=== PATIENT | female | born 1945 | race Caucasian/White ===

== ENCOUNTER 2017-01-28 13:00 | Inpatient (IN) | payer OTHER ==
[~2017-01-28] VITALS: Ht 157.5 cm; Wt 102.7 kg
--- NOTE | 2017-01-28 13:58 | ERA ---
ER Documentation Chief Complaint Date/Time DATE: 01/28/17 TIME: 13:58 Chief Complaint PT referred by for createnine: 6.72 from 01/23/17 HPI The patient is a 71-year-old female, presenting to the ER because of abnormal lab creatinine 6.72 on January 23, 2017. She went to the clinic, who sent her to the ER for further evaluation. She denies any symptoms, denies fever, chills, headache, neck pain, dizziness, chest pain, dyspnea, abdominal pain, vomiting, dysuria. She does not smoke nor drink. She does not take her medications this morning Past medical history: Chronic kidney disease, hypertension Past surgical history: Tubal ligation ROS All systems reviewed and are negative except as per history of present illness. Medications Home Meds Reported Medications Losartan Potassium* (Losartan Potassium*) 100 Mg Tablet, 100 MG PO DAILY, TAB 01/28/17 Allergies Allergies: Coded Allergies: No Known Allergy (Unverified , 01/28/17) Physical Exam Vitals Vital Signs Date Time Temp Pulse Resp B/P Pulse Ox O2 Delivery O2 Flow Rate FiO2 01/28/17 13:02 97.8 92 18 212/100 99 Physical Exam Const: No acute distress. Head: Atraumatic. Eyes: Normal Conjunctiva. ENT: Normal External Ears, Nose and Mouth. Neck: Full range of motion. No meningismus. Resp: Clear to auscultation bilaterally. Cardio: Regular rate and rhythm. Abd: Soft, non distended, normal bowel sounds, non tender. Skin: No petechiae or rashes. Back: No midline or flank tenderness. Ext: No cyanosis, or edema. Neur: Awake and alert. No focal deficit Psych: Normal Mood and Affect. Result Diagram: 01/28/17 1419 01/28/17 1419 Results 24 hrs Laboratory Tests Test 01/28/17 14:19 White Blood Count 13.410^3/ul Red Blood Count 2.9910^6/ul Hemoglobin 8.8g/dl Hematocrit 27.4% Mean Corpuscular Volume 91.6fl Mean Corpuscular Hemoglobin 29.4pg Mean Corpuscular Hemoglobin Concent 32.1g/dl Red Cell Distribution Width 15.2% Platelet Count 09857^3/UL Mean Platelet Volume 10.1fl Neutrophils % 66.5% Lymphocytes % 19.3% Monocytes % 8.2% Eosinophils % 4.4% Basophils % 0.3% Nucleated Red Blood Cells % 0.0/100WBC Neutrophils # 8.910^3/ul Lymphocytes # 2.610^3/ul Monocytes # 1.110^3/ul Eosinophils # 0.610^3/ul Basophils # 0.010^3/ul Nucleated Red Blood Cells # 0.010^3/ul Prothrombin Time 14.0Sec Prothrombin Time Ratio 1.1 INR International Normalized Ratio 1.08 Activated Partial Thromboplast Time 35.4Sec Sodium Level 146mmol/L Potassium Level 4.8mmol/L Chloride Level 112mmol/L Carbon Dioxide Level 17mmol/L Anion Gap 22 Blood Urea Nitrogen 68mg/dl Creatinine 7.06mg/dl Glucose Level 79mg/dl Calcium Level 9.1mg/dl Phosphorus Level 5.5mg/dl Magnesium Level 1.7mg/dl Total Bilirubin 0.2mg/dl Direct Bilirubin 0.00mg/dl Indirect Bilirubin 0.2mg/dl Aspartate Amino Transf (AST/SGOT) 16IU/L Alanine Aminotransferase (ALT/SGPT) 22IU/L Alkaline Phosphatase 98IU/L Total Protein 8.1g/dl Albumin 4.3g/dl Globulin 3.80g/dl Albumin/Globulin Ratio 1.13 Current Medications Medications (Trade) Dose Ordered Sig/Luisa Route PRN Reason Start Time Stop Time Status Last Admin Dose Admin Labetalol HCl (Labetalol) 20 mg ONCE ONCE IV 01/28/17 14:30 01/28/17 14:31 Cancel Procedures/MDM MEDICAL MAKING DECISION: The patient is a 71-year-old female, presenting with acute on chronic kidney disease. She was sent to the ER by her physician for evaluation for hemodialysis Departure Diagnosis: Primary Impression: Acute kidney injury superimposed on chronic kidney disease Additional Impression: Anemia Condition: Stable Comments I discussed the findings with the patient. I discussed the patient with the on- call hospitalist Dr. Davalos at 3:20 PM who was made aware of the lab, the treatment, the patient condition. The patient is admitted to [facility] MD Jan 28, 2017 13:58
[2017-01-28] MEDS ORDERED: LOSA100T7 PO (14:12)
[2017-01-28] MEDS ORDERED: LABETALOL HCL 20MG INJ IV ONE (14:30)
[2017-01-28 14:33] LABS: BASOPHILS % 0.3 % (0.0-2.0); EOSINOPHILS # 0.6 10^3/ul (0.0-0.5); EOSINOPHILS % 4.4 % (0.0-7.0); HEMATOCRIT 27.4 % (37.0-47.0); HEMOGLOBIN 8.8 g/dl (12.0-16.0); LYMPHOCYTES # 2.6 10^3/ul (0.8-2.9); LYMPHOCYTES % 19.3 % (15.0-51.0); MEAN CORPUSCULAR HEMOGLOBIN 29.4 pg (29.0-33.0); MEAN CORPUSCULAR HGB CONC 32.1 g/dl (32.0-37.0); MEAN CORPUSCULAR VOLUME 91.6 fl (82.0-101.0); MEAN PLATELET VOLUME 10.1 fl (7.4-10.4); MONOCYTE # 1.1 10^3/ul (0.3-0.9); MONOCYTES % 8.2 % (0.0-11.0); NEUTROPHIL # 8.9 10^3/ul (1.6-7.5); NEUTROPHILS % 66.5 % (39.0-77.0); PLATELET COUNT 299 10^3/UL (140-415); RED BLOOD COUNT 2.99 10^6/ul (4.20-5.40); RED CELL DISTRIBUTION WIDTH 15.2 % (11.5-14.5); WHITE BLOOD COUNT 13.4 10^3/ul (4.8-10.8)
--- NOTE | 2017-01-28 14:40 | RADRPT ---
PROCEDURE: Chest Radiograph. CLINICAL INDICATION: Abdominal pain TECHNIQUE: Single frontal chest radiograph. COMPARISON: None available FINDINGS: The cardiomediastinal silhouette is within normal limits. No infiltrate or effusion is seen. Th e bones are intact. IMPRESSION: 1. Unremarkable chest radiograph. RPTAT: KK .Jamie Marquez MD, MD Date Time Electronically viewed and signed by .Jamie Marquez MD, on 01/28/2017 14:40 .B/
[2017-01-28 14:48] LABS: INR 1.08; PT RATIO 1.1
[2017-01-28 14:49] LABS: PARTIAL THROMBOPLASTIN TIME 35.4 Sec (25.0-35.0)
[2017-01-28 14:52] LABS: ALBUMIN 4.3 g/dl (3.3-4.9); ALBUMIN/GLOBULIN RATIO 1.13; BILIRUBIN,INDIRECT 0.2 mg/dl (0-1.1); BILIRUBIN,TOTAL 0.2 mg/dl (0.2-1.3); CALCIUM 9.1 mg/dl (8.4-10.2); CREATININE 7.06 mg/dl (0.44-1.00); MAGNESIUM 1.7 mg/dl (1.7-2.5); PHOSPHORUS 5.5 mg/dl (2.5-4.9); POTASSIUM 4.8 mmol/L (3.5-5.1); TOTAL PROTEIN 8.1 g/dl (6.1-8.1)
[2017-01-28 15:30] VITALS: TEMP 97.8
[2017-01-28 16:57] VITALS: BP 165/80; PULSE 75; RESP 18
[2017-01-28 17:13] VITALS: Ht 157.5 cm; Wt 102.7 kg
--- NOTE | 2017-01-28 18:13 | HP ---
Date/Time of Note Date/Time of Note DATE: 01/28/17 TIME: 18:09 Assessment/Plan VTE Prophylaxis VTE Prophylaxis Intervention: SCD's Lines/Catheters IV Catheter Type (from [facility]): Saline Lock Urinary Cath still in place: Yes Reason Cath still needed: urinary retention Assessment/Plan Chief Complaint/Hosp Course Patient is a 71-year-old female with past medical history significant for CKD and hypertension who presents to [facility] after being sent by her primary care provider for acute renal failure. Assessment Acute kidney injury on chronic kidney disease Hypernatremia, mild Hyperchloremia hypertensive emergency, SBP >180 with renal failure. resolved Anion gap metabolic acidosis Elevated BUN Elevated phosphorus Obesity Anemia, normocytic Plan -Nephrology consulted, currently solar sales associate is at bedside and stated will handle all orders. Avalos catheter ordered. Likely needs ultrasound of the kidneys as well as urine studies. -Hold patient's losartan in face of acute kidney injury -Electrolyte derangement likely secondary to acute renal failure, repeat labs tomorrow -Follow-up with nephrology recommendations -PRN BP medications. Will start oral amlodipine. Julian Shin DO. Problems: HPI/ROS Admit Date/Time Admit Date/Time Jan 28, 2017 at 15:23 Hx of Present Illness Patient is a 71-year-old female with a past medical history significant for CKD and hypertension who presents to [facility] after following up with her primary care provider who incidentally found an elevated creatinine. Patient only takes losartan 100 mg daily and has not taken the medication today which is likely the reasoning behind her elevated blood pressure. Patient states that in [place] her physicians always mentioned that her poor renal function, however they stated it was not severe enough for medication or dialysis at this time. Patient has no other acute complaints. Denies nausea vomiting, headache, chest pain, abdominal pain. No bowel issues however does have a history of mild urinary retention. PMH: Hypertension and CKD PSH: Tubal ligation many years ago Social: Denies smoking, drinking, recreational drugs Meds: Losartan 100 mg daily PMH/Family/Social Social History Smoking Status: Never smoker Exam/Review of Systems Vital Signs Vitals Vital Signs Date Time Temp Pulse Resp B/P Pulse Ox O2 Delivery O2 Flow Rate FiO2 01/28/17 16:57 98.1 75 18 165/80 100 Room Air Exam Exam Physical exam General: Patient is laying in bed and answers questions appropriately Mentation: Patient is alert and oriented 4, Head: Normocephalic atraumatic Eyes: EOMI, pupils reactive to light Neck: Supple, nontender, midline Respiratory: Clear to auscultation bilaterally Cardiovascular: regular rate, no obvious murmurs Gastrointestinal: non-tender to palpation, bowel sounds heard.obese Neurological: Moves all extremities spontaneously Skin: No new skin lesions Labs Result Diagram: 01/28/17 1419 01/28/17 1419 Medications Medications Current Medications Hydralazine HCl (Apresoline) 10 mg Q4H PRN IV SBP>160; Start 01/28/17 at 18:00 Acetaminophen/ Hydrocodone Bitart ([place] (5/325)) 2 tab Q6H PRN PO SEVERE PAIN LEVEL 7-10; Start 01/28/17 at 18:30; Status UNV Magnesium Hydroxide (Milk Of Mag) 30 ml DAILY PRN PO CONSTIPATION; Start at 18:30; Status UNV Zolpidem Tartrate (Ambien) 5 mg QHS PRN PO SLEEP; Start 01/28/17 at 18:30; Status UNV JULIAN SHIN Jan 28, 2017 18:13
--- NOTE | 2017-01-28 18:27 | CONS ---
Date/Time of Note Date/Time of Note DATE: 01/28/17 TIME: 18:24 Assessment/Plan Assessment/Plan Chief Complaint/Hosp Course CKD 5 HYPERTENSIVE NEPHROSCLEROSIS R/O RA STENOSIS ANEMIA POSS INTER ST NEPHRITES PLAN PER ORDER HD IF NO IMPROVEMENT THX Problems: Consultation Date/Type/Reason Admit Date/Time Jan 28, 2017 at 15:23 Initial Consult Date Type of Consultation: RENAL 24 HR Interval Summary Constitutional: No diaphoresis, No disoriented Exam/Review of Systems Vital Signs Vitals Vital Signs Date Time Temp Pulse Resp B/P Pulse Ox O2 Delivery O2 Flow Rate FiO2 01/28/17 16:57 98.1 75 18 165/80 100 Room Air Exam [id number] NO SOB NO TEE NO NSAID ABUSE Psych: no complaints Head: normocephalic Eyes: nl conjunctiva ENMT: nl external ears & nose Neck: supple Respiratory: clear to auscultation Cardiovascular: nl pulses, regular rate and rhythm Gastrointestinal: soft Musculoskeletal: nl extremities to inspection Extremities: normal pulses Neurological: WASTEWATER ANALYST LAB ANALYST II-XII intact, nl mental status, nl speech Results Result Diagram: 01/28/17 1419 01/28/17 1419 Results 24 hrs Laboratory Tests Test 01/28/17 14:19 White Blood Count 13.4 H Red Blood Count 2.99 L Hemoglobin 8.8 L Hematocrit 27.4 L Mean Corpuscular Volume 91.6 Mean Corpuscular Hemoglobin 29.4 Mean Corpuscular Hemoglobin Concent 32.1 Red Cell Distribution Width 15.2 H Platelet Count 299 Mean Platelet Volume 10.1 Neutrophils % 66.5 Lymphocytes % 19.3 Monocytes % 8.2 Eosinophils % 4.4 Basophils % 0.3 Nucleated Red Blood Cells % 0.0 Neutrophils # 8.9 H Lymphocytes # 2.6 Monocytes # 1.1 H Eosinophils # 0.6 H Basophils # 0.0 Nucleated Red Blood Cells # 0.0 Prothrombin Time 14.0 Prothrombin Time Ratio 1.1 INR International Normalized Ratio 1.08 Activated Partial Thromboplast Time 35.4 H Sodium Level 146 H Potassium Level 4.8 Chloride Level 112 H Carbon Dioxide Level 17 L Anion Gap 22 H Blood Urea Nitrogen 68 H Creatinine 7.06 H Glucose Level 79 Calcium Level 9.1 Phosphorus Level 5.5 H Magnesium Level 1.7 Total Bilirubin 0.2 Direct Bilirubin 0.00 Indirect Bilirubin 0.2 Aspartate Amino Transf (AST/SGOT) 16 Alanine Aminotransferase (ALT/SGPT) 22 Alkaline Phosphatase 98 Total Protein 8.1 Albumin 4.3 Globulin 3.80 H Albumin/Globulin Ratio 1.13 Medications Medications Current Medications Hydralazine HCl (Apresoline) 10 mg Q4H PRN IV SBP>160; Start 01/28/17 at 18:00 Acetaminophen/ Hydrocodone Bitart ([place] (5/325)) 2 tab Q6H PRN PO SEVERE PAIN LEVEL 7-10; Start 01/28/17 at 18:30 Magnesium Hydroxide (Milk Of Mag) 30 ml DAILY PRN PO CONSTIPATION; Start at 18:30 Zolpidem Tartrate (Ambien) 5 mg QHS PRN PO SLEEP; Start 01/28/17 at 18:30 Amlodipine Besylate (Norvasc) 10 mg ONCE ONCE PO ; Start 01/28/17 at 18:30; Stop 01/28/17 at 18:31 Amlodipine Besylate 10 mg 10 mg DAILY PO ; Start 01/29/17 at 09:00 Sodium Chloride (1/2 NS) 1,000 ml @ 40 mls/hr Q24H IV ; Start 01/28/17 at 18:30 FRANCISCO BAUER MD Jan 28, 2017 18:27
[2017-01-28] MEDS ORDERED: MAGNESIUM HYDROXIDE 30ML CUP PO PRN (18:30)
[2017-01-28] MEDS ORDERED: AMLODIPINE 10 MG TAB PO ONE (18:30)
[2017-01-28] MEDS ORDERED: ZOLPIDEM 5 MG TAB PO PRN (18:30)
[2017-01-28] MEDS ORDERED: NACL 0.9% 3 ML SYG IV SCH (18:30)
[2017-01-28] MEDS: SOD CHLORIDE 0.45% 1,000 ML IV SCH (18:47)
--- NOTE | 2017-01-28 19:01 | RADRPT ---
PROCEDURE: Renal US. CLINICAL INDICATION: Acute kidney injury. TECHNIQUE: Multiple sonographic images of the kidneys and urinary bladder were obtained. The imag es were reviewed on a PACS workstation. COMPARISON: No prior studies are available for comparison. FINDINGS: The right kidney measures 10.9 x 5.3 x 4.3 cm. The left kidney measures 11.3 x 5.6 x 5.1 cm. There is no solid renal mass. There is a benign cyst in the mid left kidney measuring 2.1 x 1.5 x 2 .1 cm There is no hydronephrosis. There is no renal calculus. Renal parenchymal thickness is normal bilaterally. Both kidneys are hyperechoic consistent with medical renal disease. The perirenal regions are normal with no fluid collection or mass. The urinary bladder is unremarkable. IMPRESSION: 1. No hydronephrosis. 2. Benign left renal cyst. 3. Bilateral hyperechoic kidneys consistent with medical renal disease. RPTAT: QQ .Matheus Landaverde MD, MD Date Time Electronically viewed and signed by .Matheus Landaverde MD, on 01/28/2017 19:01 .R/
[2017-01-28 20:50] VITALS: BP 186/87; RESP 18
[2017-01-28 22:27] LABS: HAAIG REFLEX REFLEX FILED
[2017-01-28 22:51] LABS: IRON 44 ug/dl (35-150)
[2017-01-28 23:00] VITALS: BP 166/76; PULSE 73
[2017-01-28 23:01] LABS: TOTAL IRON BINDING CAPACITY 253 ug/dl (241-421)
[2017-01-28] MEDS: hydrALAzine 20 MG INJ IV PRN (23:13)
[2017-01-28 23:41] LABS: HEPATITIS B CORE ANTIBODY NEGATIVE (NEGATIVE)
[2017-01-29 03:02] VITALS: BP 140/71; RESP 20
[2017-01-29 05:52] LABS: BASOPHILS % 0.3 % (0.0-2.0); EOSINOPHILS # 0.6 10^3/ul (0.0-0.5); HEMATOCRIT 25.8 % (37.0-47.0); HEMOGLOBIN 8.7 g/dl (12.0-16.0); LYMPHOCYTES % 14.3 % (15.0-51.0); MEAN CORPUSCULAR HEMOGLOBIN 30.5 pg (29.0-33.0); MEAN CORPUSCULAR HGB CONC 33.7 g/dl (32.0-37.0); MEAN CORPUSCULAR VOLUME 90.5 fl (82.0-101.0); MEAN PLATELET VOLUME 10.1 fl (7.4-10.4); MONOCYTE # 0.9 10^3/ul (0.3-0.9); MONOCYTES % 6.9 % (0.0-11.0); NEUTROPHIL # 10.1 10^3/ul (1.6-7.5); NEUTROPHILS % 73.8 % (39.0-77.0); PLATELET COUNT 294 10^3/UL (140-415); RED BLOOD COUNT 2.85 10^6/ul (4.20-5.40); RED CELL DISTRIBUTION WIDTH 14.7 % (11.5-14.5); WHITE BLOOD COUNT 13.7 10^3/ul (4.8-10.8)
[2017-01-29 06:03] LABS: ADD UMIC YES; UR ASCORBIC ACID NEGATIVE (NEGATIVE); UR BILIRUBIN (Dip) NEGATIVE (NEGATIVE); UR BLOOD (Dip) NEGATIVE (NEGATIVE); UR CLARITY CLEAR (CLEAR); UR COLOR STRAW (YELLOW); UR GLUCOSE (Dip) 1+ mg/dL (NEGATIVE); UR KETONES (Dip) NEGATIVE (NEGATIVE); UR LEUKOCYTE ESTERASE (Dip) NEGATIVE Leu/ul (NEGATIVE); UR NITRITE (Dip) NEGATIVE (NEGATIVE); UR RBC 0 /HPF (0-5); UR TOTAL PROTEIN (Dip) 2+ mg/dl (NEGATIVE); UR UROBILINOGEN (Dip) NEGATIVE (NEGATIVE)
[2017-01-29 06:24] LABS: MAGNESIUM 1.6 mg/dl (1.7-2.5); PHOSPHORUS 5.8 mg/dl (2.5-4.9)
[2017-01-29 06:25] LABS: ALBUMIN 3.8 g/dl (3.3-4.9); ALBUMIN/GLOBULIN RATIO 1.05; BILIRUBIN,INDIRECT 0.2 mg/dl (0-1.1); BILIRUBIN,TOTAL 0.2 mg/dl (0.2-1.3); CALCIUM 9.3 mg/dl (8.4-10.2); CREATININE 6.65 mg/dl (0.44-1.00); POTASSIUM 4.8 mmol/L (3.5-5.1); TOTAL PROTEIN 7.4 g/dl (6.1-8.1)
[2017-01-29 06:39] LABS: T3 UPTAKE 35.5 % (23.5-40.5)
[2017-01-29 07:09] LABS: PROTEIN/CREAT RATIO 6.29 RATIO
[2017-01-29 08:02] VITALS: BP 185/85; RESP 18
[2017-01-29] MEDS: AMLODIPINE 10 MG TAB PO SCH (08:11)
[2017-01-29] MEDS: hydrALAzine 20 MG INJ IV PRN (08:11)
--- NOTE | 2017-01-29 08:22 | CONS ---
DATE OF ADMISSION: 01/28/2017 DATE OF CONSULTATION: 01/28/2017 Nephrology consultation Thank you Dr. STEPHENSON for kindly asking me to see this patient IN RENAL _ consultation. HISTORY OF PRESENT ILLNESS: The patient is a 71-year-old female who has a history of CKD, history of hypertension. Most of the care for the patient's kidney disease is done in [place]. She had labs done in November in [place] and show patient's creatinine is running in the range of 7. The patient also had 4 years ago chronic kidney disease in [place], but has a poor followup. Patient had ultrasound done of kidney in [place], no report available. Was told she has kidney disease. The patient was seen in the clinic today, as per patient, and sent here for normal labs. The patient's WBC 13.4, hematocrit 27.5, platelet count of 299. Sodium 146, potassium 4.8, CO2 17, chloride 112. BUN and creatinine are BUN 68 and 7.06. The patient's chest x- ray shows unremarkable chest x-ray. The patient denies any nausea, vomiting, and diarrhea. Denies any history of NSAID abuse. There is a history of high blood pressure, takes medication from [place], does not know the name. Denies history of lupus, arthritis, no sore throat or ear discharge. No recent use of antibiotics. No history of gout. No history of lupus. No history of NSAID abuse. No history of . Photophobia, skin rash. PAST MEDICAL HISTORY: CKD, hypertension, anemia. ALLERGIES: SHE DENIES. FAMILY HISTORY: Diabetes, hypertension. MEDICATION: Patient at home is on Losartan. REVIEW OF SYSTEMS: HEENT: Unremarkable. RESPIRATORY: Unremarkable. CVS: No chest pain, GASTROINTESTINAL: No hematemesis. GENITOURINARY: No dysuria, hematuria, or flank pain. EXTREMITIES: Denies any swelling, numbness. WHEEL FILLER: No history of neuropathy or CVA PHYSICAL EXAMINATION: GENERAL APPEARANCE: An obese, overweight female, awake and alert. VITAL SIGNS: Pulse 71, blood pressure 165/80. HEENT: Head is atraumatic, normocephalic. Pupils are reactive to light. Pale pale conjunctivae noticed. NECK: Supple. LUNGS: Clear. CVS: S1, S2 normal. ABDOMEN: Soft, obese. Bowel sounds positive. No palpable mass. EXTREMITIES: No cyanosis or clubbing. Trace edema. WHEEL FILLER: Patient is awake, alert, moving both upper and lower extremities. No focal deficits. LABORATORY DATA: As mentioned. Sodium 146, potassium 4.8. BUN 68, creatinine 7.06. IMPRESSION: 1. Chronic kidney disease. 2. 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 3. Patient has POSS ARB AND WAI INDUCED MELISSA. 4. Mild dehydration. 5. Hypernatremia, metabolic acidosis. 6. Anemia of chronic kidney disease. 7. Leukocytosis. 8. R/O RA stenosis. 9. Obesity. 10. Rule out underlying focal segmental glomerulosclerosis. No evidence of acute glomerulonephritis. PLAN: At this point the plan is to obtain urine sodium and creatinine. Patient will have URIC ACID, phosphorus, uric acid checked. Gentle IV fluids. Ultrasound of the kidney. Urine albumin/creatinine ratio. RENAL diet. Further recommendations will be made. If the patient has no improvement in kidney function, the patient will benefit from hemodialysis. Thank you Dr STEPHENSON for kindly asking me to see this patient. Dictated By: Matt Cardenas MD /nnamdi/olamide /Document#: [id number] WARREN
[2017-01-29 09:06] VITALS: BP 151/71
[2017-01-29] MEDS ORDERED: TERAZOSIN 1 MG CAP PO ONE (09:30)
[2017-01-29] MEDS ORDERED: LABETALOL HCL 20MG INJ IV PRN (10:00)
[2017-01-29 11:26] VITALS: BP 135/70; PULSE 94
[2017-01-29] MEDS ORDERED: ONDANSETRON 4 MG INJ ONE (12:02)
[2017-01-29] MEDS: ONDANSETRON 4 MG INJ IV PRN (12:06)
[2017-01-29 14:24] VITALS: BP 122/58; RESP 18
--- NOTE | 2017-01-29 15:53 | PN ---
Date/Time of Note Date/Time of Note DATE: 01/29/17 TIME: 15:51 Assessment/Plan VTE Prophylaxis VTE Prophylaxis Intervention: SCD's Lines/Catheters IV Catheter Type (from Nrs): Saline Lock Urinary Cath still in place: Yes Reason Cath still needed: urinary retention Assessment/Plan Chief Complaint/Hosp Course Patient is a 71-year-old female with past medical history significant for CKD and hypertension who presents to [facility] after being sent by her primary care provider for acute renal failure. Assessment Acute kidney injury on chronic kidney disease Hypernatremia, mild Hyperchloremia hypertensive emergency, SBP >180 with renal failure. resolved Anion gap metabolic acidosis Elevated BUN Elevated phosphorus Obesity Anemia, normocytic Plan -nephrology consulted. FeNA, 12.5%. Cr only slightly improved today. pending recs. possible need for dialysis? -started amlodipine as we are holding losartan for MELISSA. adding terazosin today -urinating well with baumann -watch BP closely, PRN hydralazine (although gives her anxiety) and sublingual clonidine prn -prn zofran for n/v Julian Velasquez DO. Problems: Exam/Review of Systems Vital Signs Vitals Vital Signs Date Time Temp Pulse Resp B/P Pulse Ox O2 Delivery O2 Flow Rate FiO2 01/29/17 14:24 98.1 90 18 122/58 98 01/28/17 16:57 Room Air Intake and Output 01/28/17 01/28/17 01/29/17 15:00 23:00 07:00 Intake Total 180 ml 640 ml Output Total 1350 ml Balance 180 ml -710 ml Exam Physical exam General: Patient is laying in bed and answers questions appropriately Mentation: Patient is alert and oriented 4, Head: Normocephalic atraumatic Eyes: EOMI, pupils reactive to light Neck: Supple, nontender, midline Respiratory: Clear to auscultation bilaterally Cardiovascular: regular rate, no obvious murmurs Gastrointestinal: non-tender to palpation, bowel sounds heard.obese Neurological: Moves all extremities spontaneously Skin: No new skin lesions Results Result Diagram: 01/29/17 0530 01/29/17 0530 Results 24 hrs Laboratory Tests Test 01/28/17 21:35 01/28/17 22:17 01/28/17 22:18 01/29/17 05:28 Urine Color STRAW Urine Clarity CLEAR Urine pH 6.0 Urine Specific [place] 1.010 Urine Ketones NEGATIVE Urine Nitrite NEGATIVE Urine Bilirubin NEGATIVE Urine Urobilinogen NEGATIVE Urine Leukocyte Esterase NEGATIVE Urine Microscopic RBC 0 Urine Microscopic WBC 0 Urine Hemoglobin NEGATIVE Urine Random Creatinine 45.77 Urine Random Sodium 118 H Urine Protein/Creatinine Ratio 6.29 Urine Glucose 1+ H Urine Total Protein 2+ H Uric Acid 8.5 H Iron Level 44 Total Iron Binding Capacity 253 Percent Iron Saturation 17 L Parathyroid Hormone (Intact) Hepatitis B Surface Antigen NEGATIVE Hepatitis B Core Total Antibody NEGATIVE Hepatitis C Antibody NEGATIVE Phosphorus Level 5.8 H Magnesium Level 1.6 L Triglycerides Level 230 H Cholesterol Level 196 LDL Cholesterol, Calculated 122 HDL Cholesterol 28 L Cholesterol/HDL Ratio 7.0 Free Thyroxine Index 2.17 Thyroxine (T4) 6.1 Triiodothyronine (T3) Uptake 35.5 Test 01/29/17 05:30 White Blood Count 13.7 H Red Blood Count 2.85 L Hemoglobin 8.7 L Hematocrit 25.8 L Mean Corpuscular Volume 90.5 Mean Corpuscular Hemoglobin 30.5 Mean Corpuscular Hemoglobin Concent 33.7 Red Cell Distribution Width 14.7 H Platelet Count 294 Mean Platelet Volume 10.1 Neutrophils % 73.8 Lymphocytes % 14.3 L Monocytes % 6.9 Eosinophils % 4.0 Basophils % 0.3 Nucleated Red Blood Cells % 0.0 Neutrophils # 10.1 H Lymphocytes # 2.0 Monocytes # 0.9 Eosinophils # 0.6 H Basophils # 0.0 Nucleated Red Blood Cells # 0.0 Sodium Level 144 Potassium Level 4.8 Chloride Level 110 Carbon Dioxide Level 16 L Anion Gap 23 H Blood Urea Nitrogen 68 H Creatinine 6.65 H Glucose Level 94 Hemoglobin A1c 5.1 Calcium Level 9.3 Total Bilirubin 0.2 Direct Bilirubin 0.00 Indirect Bilirubin 0.2 Aspartate Amino Transf (AST/SGOT) 21 Alanine Aminotransferase (ALT/SGPT) 25 Alkaline Phosphatase 90 Total Protein 7.4 Albumin 3.8 Globulin 3.60 H Albumin/Globulin Ratio 1.05 Medications Medications Current Medications Hydralazine HCl (Apresoline) 10 mg Q4H PRN IV SBP>160 Last administered on t 08:11; Admin Dose 10 MG; Start 01/28/17 at 18:00 Acetaminophen/ Hydrocodone Bitart ([place] (5/325)) 2 tab Q6H PRN PO SEVERE PAIN LEVEL 7-10; Start 01/28/17 at 18:30 Magnesium Hydroxide (Milk Of Mag) 30 ml DAILY PRN PO CONSTIPATION; Start at 18:30 Zolpidem Tartrate (Ambien) 5 mg QHS PRN PO SLEEP; Start 01/28/17 at 18:30 Amlodipine Besylate 10 mg 10 mg DAILY PO Last administered on 01/29/17 08:11; Admin Dose 10 MG; Start 01/29/17 at 09:00 Sodium Chloride (1/2 NS) 1,000 ml @ 60 mls/hr [id number] IV Last administered on 01/28/17 18:47; Admin Dose 40 MLS/HR; Start 01/28/17 at 18:30 Terazosin HCl (Hytrin) 1 mg HS PO ; Start 01/29/17 at 21:00 Clonidine (Catapres) 0.1 mg Q6H PRN PO BP >160; Start 01/29/17 at 10:00 Ondansetron HCl 4 mg 4 mg Q6H PRN IV NAUSEA AND/OR VOMITING Last administered on 01/29/17 12:06; Admin Dose 4 MG; Start 01/29/17 at 12:00 Magnesium Sulfate (Magnesium Sulfate 2 Gm/50 ml) 50 ml @ 25 mls/hr ONCE ONCE IVPB ; Start 01/29/17 at 16:00; Stop 01/29/17 at 17:59 JULIAN VELASQUEZ Jan 29, 2017 15:53
[2017-01-29] MEDS ORDERED: MAGNESIUM SULFATE 2 GM/50 ML 50 ML IVPB ONE (16:00)
[2017-01-29] MEDS: SOD CHLORIDE 0.45% 1,000 ML IV SCH (17:57)
--- NOTE | 2017-01-29 18:03 | PN ---
Date/Time of Note Date/Time of Note DATE: 01/29/17 TIME: 18:01 Assessment/Plan VTE Prophylaxis VTE Prophylaxis Intervention: other Lines/Catheters IV Catheter Type (from Nrs): Saline Lock Urinary Cath still in place: Yes Reason Cath still needed: other (indicate) Assessment/Plan Chief Complaint/Hosp Course CKD 5 HYPERTENSIVE NEPHROSCLEROSIS R/O RA STENOSIS ANEMIA POSS INTER ST NEPHRITES HYPOMAGNESEMIA PLAN PER ORDER HD IF NO IMPROVEMENT IV FLUID Problems: Subjective 24 Hr Interval Summary Cardiovascular: no complaints Gastrointestinal: no complaints Genitourinary: no complaints Musculoskeletal: no complaints Neurologic: no complaints Endocrine: no complaints Lymphatic: no complaints Exam/Review of Systems Vital Signs Vitals Vital Signs Date Time Temp Pulse Resp B/P Pulse Ox O2 Delivery O2 Flow Rate FiO2 01/29/17 14:24 98.1 90 18 122/58 98 01/28/17 16:57 Room Air Intake and Output 01/28/17 01/28/17 01/29/17 15:00 23:00 07:00 Intake Total 180 ml 640 ml Output Total 1350 ml Balance 180 ml -710 ml Exam Neck: supple Respiratory: clear to auscultation Cardiovascular: regular rate and rhythm Gastrointestinal: soft Genitourinary - Female: nl adnexae Musculoskeletal: nl extremities to inspection Extremities: normal pulses Results Result Diagram: 01/29/17 0530 01/29/17 0530 Results 24 hrs Laboratory Tests Test 01/28/17 21:35 01/28/17 22:17 01/28/17 22:18 01/29/17 05:28 Urine Color STRAW Urine Clarity CLEAR Urine pH 6.0 Urine Specific [place] 1.010 Urine Ketones NEGATIVE Urine Nitrite NEGATIVE Urine Bilirubin NEGATIVE Urine Urobilinogen NEGATIVE Urine Leukocyte Esterase NEGATIVE Urine Microscopic RBC 0 Urine Microscopic WBC 0 Urine Hemoglobin NEGATIVE Urine Random Creatinine 45.77 Urine Random Sodium 118 H Urine Protein/Creatinine Ratio 6.29 Urine Glucose 1+ H Urine Total Protein 2+ H Uric Acid 8.5 H Iron Level 44 Total Iron Binding Capacity 253 Percent Iron Saturation 17 L Parathyroid Hormone (Intact) Hepatitis B Surface Antigen NEGATIVE Hepatitis B Core Total Antibody NEGATIVE Hepatitis C Antibody NEGATIVE Phosphorus Level 5.8 H Magnesium Level 1.6 L Triglycerides Level 230 H Cholesterol Level 196 LDL Cholesterol, Calculated 122 HDL Cholesterol 28 L Cholesterol/HDL Ratio 7.0 Free Thyroxine Index 2.17 Thyroxine (T4) 6.1 Triiodothyronine (T3) Uptake 35.5 Test 01/29/17 05:30 White Blood Count 13.7 H Red Blood Count 2.85 L Hemoglobin 8.7 L Hematocrit 25.8 L Mean Corpuscular Volume 90.5 Mean Corpuscular Hemoglobin 30.5 Mean Corpuscular Hemoglobin Concent 33.7 Red Cell Distribution Width 14.7 H Platelet Count 294 Mean Platelet Volume 10.1 Neutrophils % 73.8 Lymphocytes % 14.3 L Monocytes % 6.9 Eosinophils % 4.0 Basophils % 0.3 Nucleated Red Blood Cells % 0.0 Neutrophils # 10.1 H Lymphocytes # 2.0 Monocytes # 0.9 Eosinophils # 0.6 H Basophils # 0.0 Nucleated Red Blood Cells # 0.0 Sodium Level 144 Potassium Level 4.8 Chloride Level 110 Carbon Dioxide Level 16 L Anion Gap 23 H Blood Urea Nitrogen 68 H Creatinine 6.65 H Glucose Level 94 Hemoglobin A1c 5.1 Calcium Level 9.3 Total Bilirubin 0.2 Direct Bilirubin 0.00 Indirect Bilirubin 0.2 Aspartate Amino Transf (AST/SGOT) 21 Alanine Aminotransferase (ALT/SGPT) 25 Alkaline Phosphatase 90 Total Protein 7.4 Albumin 3.8 Globulin 3.60 H Albumin/Globulin Ratio 1.05 Medications Medications Current Medications Hydralazine HCl (Apresoline) 10 mg Q4H PRN IV SBP>160 Last administered on 08:11; Admin Dose 10 MG; Start 01/28/17 at 18:00 Acetaminophen/ Hydrocodone Bitart ([place] (5/325)) 2 tab Q6H PRN PO SEVERE PAIN LEVEL 7-10; Start 01/28/17 at 18:30 Magnesium Hydroxide (Milk Of Mag) 30 ml DAILY PRN PO CONSTIPATION; Start at 18:30 Zolpidem Tartrate (Ambien) 5 mg QHS PRN PO SLEEP; Start 01/28/17 at 18:30 Amlodipine Besylate 10 mg 10 mg DAILY PO Last administered on 01/29/17 08:11; Admin Dose 10 MG; Start 01/29/17 at 09:00 Sodium Chloride (1/2 NS) 1,000 ml @ 60 mls/hr [id number] IV Last administered on 01/29/17 17:57; Admin Dose 60 MLS/HR; Start 01/28/17 at 18:30 Terazosin HCl (Hytrin) 1 mg HS PO ; Start 01/29/17 at 21:00 Clonidine (Catapres) 0.1 mg Q6H PRN PO BP >160; Start 01/29/17 at 10:00 Ondansetron HCl (Zofran Inj) 4 mg Q6H PRN IV NAUSEA AND/OR VOMITING Last administered on 01/29/17t 12:06; Admin Dose 4 MG; Start 01/29/17 at 12:00 FRANCISCO BAUER MD Jan 29, 2017 18:03
[2017-01-29 20:12] VITALS: BP 132/60; RESP 19
[2017-01-29] MEDS: TERAZOSIN 1 MG CAP PO SCH (21:09)
[2017-01-30 02:06] VITALS: BP 105/51; RESP 17
[2017-01-30 06:26] LABS: ALBUMIN 3.6 g/dl (3.3-4.9); ALBUMIN/GLOBULIN RATIO 1.09; BILIRUBIN,INDIRECT 0.1 mg/dl (0-1.1); BILIRUBIN,TOTAL 0.1 mg/dl (0.2-1.3); CREATININE 7.39 mg/dl (0.44-1.00); MAGNESIUM 2.4 mg/dl (1.7-2.5); POTASSIUM 4.8 mmol/L (3.5-5.1); TOTAL PROTEIN 6.9 g/dl (6.1-8.1)
[2017-01-30 07:53] VITALS: BP 122/59; RESP 18
[2017-01-30] MEDS: SOD CHLORIDE 0.45% 1,000 ML IV SCH (09:19)
[2017-01-30] MEDS: AMLODIPINE 10 MG TAB PO SCH (09:19)
--- NOTE | 2017-01-30 14:19 | PN ---
Date/Time of Note Date/Time of Note DATE: 01/30/17 TIME: 14:11 Assessment/Plan VTE Prophylaxis VTE Prophylaxis Intervention: ambulation Lines/Catheters IV Catheter Type (from Nrsg): Saline Lock Urinary Cath still in place: Yes Reason Cath still needed: urinary retention Assessment/Plan Chief Complaint/Hosp Course Patient is a 71-year-old female with past medical history significant for CKD and hypertension who presents to [facility] after being sent by her primary care provider for acute renal failure. Assessment Acute kidney injury on chronic kidney disease Hypernatremia, mild Hyperchloremia hypertensive emergency, SBP >180 with renal failure. resolved Anion gap metabolic acidosis Elevated BUN Elevated phosphorus Obesity Anemia, normocytic Plan -nephrology consulted. FeNA, 12.5%. Cr still poor. nephrology ordered for permacath and HD -amlodipine as we are holding losartan for EMLISSA. terazosin as well -urinating well with baumann -watch BP closely, PRN hydralazine (although gives her anxiety) and sublingual clonidine prn -prn zofran for n/v Julian Velasquez DO. Problems: Subjective 24 Hr Interval Summary Free Text/Dictation apprehensive about hemodialysis Exam/Review of Systems Vital Signs Vitals Vital Signs Date Time Temp Pulse Resp B/P Pulse Ox O2 Delivery O2 Flow Rate FiO2 01/30/17 07:53 98.0 74 18 122/59 98 01/28/17 16:57 Room Air Intake and Output 01/29/17 01/29/17 01/30/17 15:00 23:00 07:00 Intake Total 1000 ml 810 ml Output Total 1500 ml 650 ml Balance -500 ml 160 ml Exam Physical exam General: Patient is laying in bed and answers questions appropriately Mentation: Patient is alert and oriented 4, Head: Normocephalic atraumatic Eyes: EOMI, pupils reactive to light Neck: Supple, nontender, midline Respiratory: Clear to auscultation bilaterally Cardiovascular: regular rate, no obvious murmurs Gastrointestinal: non-tender to palpation, bowel sounds heard.obese Neurological: Moves all extremities spontaneously Skin: No new skin lesions Results Result Diagram: 01/29/17 0530 01/30/17 0434 Results 24 hrs Laboratory Tests Test 01/30/17 04:34 Sodium Level 143 Potassium Level 4.8 Chloride Level 111 H Carbon Dioxide Level 14 L Anion Gap 23 H Blood Urea Nitrogen 69 H Creatinine 7.39 H Glucose Level 93 Calcium Level 9.0 Magnesium Level 2.4 Total Bilirubin 0.1 L Direct Bilirubin 0.00 Indirect Bilirubin 0.1 Aspartate Amino Transf (AST/SGOT) 12 L Alanine Aminotransferase (ALT/SGPT) 20 Alkaline Phosphatase 85 Total Protein 6.9 Albumin 3.6 Globulin 3.30 H Albumin/Globulin Ratio 1.09 Medications Medications Current Medications Hydralazine HCl (Apresoline) 10 mg Q4H PRN IV SBP>160 Last administered on 08:11; Admin Dose 10 MG; Start 01/28/17 at 18:00 Acetaminophen/ Hydrocodone Bitart ([place] (5/325)) 2 tab Q6H PRN PO SEVERE PAIN LEVEL 7-10; Start 01/28/17 at 18:30 Magnesium Hydroxide (Milk Of Mag) 30 ml DAILY PRN PO CONSTIPATION; Start at 18:30 Zolpidem Tartrate (Ambien) 5 mg QHS PRN PO SLEEP; Start 01/28/17 at 18:30 Amlodipine Besylate 10 mg 10 mg DAILY PO Last administered on 01/30/17 09:19; Admin Dose 10 MG; Start 01/29/17 at 09:00 Sodium Chloride (1/2 NS) 1,000 ml @ 60 mls/hr [id number] IV Last administered on 01/30/17 09:19; Admin Dose 60 MLS/HR; Start 01/28/17 at 18:30 Terazosin HCl (Hytrin) 1 mg HS PO Last administered on 01/29/17 21:09; Admin Dose 1 MG; Start 01/29/17 at 21:00 Clonidine (Catapres) 0.1 mg Q6H PRN PO BP >160; Start 01/29/17 at 10:00 Ondansetron HCl (Zofran Inj) 4 mg Q6H PRN IV NAUSEA AND/OR VOMITING Last administered on 01/29/17 12:06; Admin Dose 4 MG; Start 01/29/17 at 12:00 JULIAN VELASQUEZ Jan 30, 2017 14:19
[2017-01-30 15:06] VITALS: BP 134/61; RESP 20
--- NOTE | 2017-01-30 19:54 | CONS ---
Date/Time of Note Date/Time of Note DATE: 01/30/17 TIME: 19:53 Assessment/Plan Assessment/Plan Chief Complaint/Hosp Course CKD 5 HYPERTENSIVE NEPHROSCLEROSIS R/O RA STENOSIS ANEMIA POSS INTER ST NEPHRITES HYPOMAGNESEMIA PLAN PER ORDER HD NEEED PERMACATH Problems: Consultation Date/Type/Reason Admit Date/Time Jan 28, 2017 at 15:23 Type of Consultation: RENAL 24 HR Interval Summary Constitutional: other (WEAKNESS) Exam/Review of Systems Vital Signs Vitals Vital Signs Date Time Temp Pulse Resp B/P Pulse Ox O2 Delivery O2 Flow Rate FiO2 01/30/17 15:06 98.3 91 20 134/61 98 01/28/17 16:57 Room Air Intake and Output 01/29/17 01/29/17 01/30/17 15:00 23:00 07:00 Intake Total 1000 ml 810 ml Output Total 1500 ml 650 ml Balance -500 ml 160 ml Exam Respiratory: clear to auscultation Cardiovascular: regular rate and rhythm Gastrointestinal: soft Extremities: normal pulses Results Result Diagram: 01/29/17 0530 01/30/17 0434 Results 24 hrs Laboratory Tests Test 01/30/17 04:34 Sodium Level 143 Potassium Level 4.8 Chloride Level 111 H Carbon Dioxide Level 14 L Anion Gap 23 H Blood Urea Nitrogen 69 H Creatinine 7.39 H Glucose Level 93 Calcium Level 9.0 Magnesium Level 2.4 Total Bilirubin 0.1 L Direct Bilirubin 0.00 Indirect Bilirubin 0.1 Aspartate Amino Transf (AST/SGOT) 12 L Alanine Aminotransferase (ALT/SGPT) 20 Alkaline Phosphatase 85 Total Protein 6.9 Albumin 3.6 Globulin 3.30 H Albumin/Globulin Ratio 1.09 Medications Medications Current Medications Hydralazine HCl (Apresoline) 10 mg Q4H PRN IV SBP>160 Last administered on t 08:11; Admin Dose 10 MG; Start 01/28/17 at 18:00 Acetaminophen/ Hydrocodone Bitart ([place] (5/325)) 2 tab Q6H PRN PO SEVERE PAIN LEVEL 7-10; Start 01/28/17 at 18:30 Magnesium Hydroxide (Milk Of Mag) 30 ml DAILY PRN PO CONSTIPATION; Start at 18:30 Zolpidem Tartrate (Ambien) 5 mg QHS PRN PO SLEEP; Start 01/28/17 at 18:30 Amlodipine Besylate 10 mg 10 mg DAILY PO Last administered on 01/30/17 09:19; Admin Dose 10 MG; Start 01/29/17 at 09:00 Sodium Chloride (1/2 NS) 1,000 ml @ 60 mls/hr [id number] IV Last administered on 01/30/17 09:19; Admin Dose 60 MLS/HR; Start 01/28/17 at 18:30 Terazosin HCl (Hytrin) 1 mg HS PO Last administered on 01/29/17 21:09; Admin Dose 1 MG; Start 01/29/17 at 21:00 Clonidine (Catapres) 0.1 mg Q6H PRN PO BP >160; Start 01/29/17 at 10:00 Ondansetron HCl (Zofran Inj) 4 mg Q6H PRN IV NAUSEA AND/OR VOMITING Last administered on 01/29/17 12:06; Admin Dose 4 MG; Start 01/29/17 at 12:00 FRANCISCO BAUER MD Jan 30, 2017 19:54
[2017-01-30 20:30] VITALS: BP 135/63; RESP 20
[2017-01-30] MEDS: TERAZOSIN 1 MG CAP PO SCH (20:36)
[2017-01-31] VITALS (10 sets, daily range): BP systolic 117–178; BP diastolic 56–98; PULSE 70–79; RESP 16–19
[2017-01-31] MEDS: SOD CHLORIDE 0.45% 1,000 ML IV SCH ×2 (01:49→03:47)
[2017-01-31 06:00] LABS: HAAIG REFLEX REFLEX FILED
[2017-01-31 06:02] LABS: BASOPHILS % 0.2 % (0.0-2.0); EOSINOPHILS # 0.5 10^3/ul (0.0-0.5); HEMATOCRIT 23.6 % (37.0-47.0); HEMOGLOBIN 7.7 g/dl (12.0-16.0); LYMPHOCYTES # 1.6 10^3/ul (0.8-2.9); LYMPHOCYTES % 13.6 % (15.0-51.0); MEAN CORPUSCULAR HGB CONC 32.6 g/dl (32.0-37.0); MEAN CORPUSCULAR VOLUME 91.8 fl (82.0-101.0); MEAN PLATELET VOLUME 10.3 fl (7.4-10.4); MONOCYTE # 0.8 10^3/ul (0.3-0.9); MONOCYTES % 6.3 % (0.0-11.0); NEUTROPHILS % 75.4 % (39.0-77.0); PLATELET COUNT 269 10^3/UL (140-415); RED BLOOD COUNT 2.57 10^6/ul (4.20-5.40); RED CELL DISTRIBUTION WIDTH 14.7 % (11.5-14.5); WHITE BLOOD COUNT 11.9 10^3/ul (4.8-10.8)
[2017-01-31 06:52] LABS: CALCIUM 8.9 mg/dl (8.4-10.2); CREATININE 7.32 mg/dl (0.44-1.00); MAGNESIUM 2.2 mg/dl (1.7-2.5); PHOSPHORUS 6.6 mg/dl (2.5-4.9); POTASSIUM 4.6 mmol/L (3.5-5.1)
[2017-01-31 07:17] LABS: HEPATITIS B CORE ANTIBODY NEGATIVE (NEGATIVE)
[2017-01-31] MEDS: AMLODIPINE 10 MG TAB PO SCH (09:00)
[2017-01-31] MEDS ORDERED: HEPARIN 1000 UNITS/ML 10 ML INJ ONE (09:22)
[2017-01-31] MEDS ORDERED: LIDOCAINE 1% (MDV) 20 ML INJ ONE (09:22)
[2017-01-31] MEDS ORDERED: FENTAnyl 50 MCG/ML VIAL ONE (09:48)
[2017-01-31] MEDS ORDERED: CEFAZOLIN 1 GM/50 ML (PMX) 50 ML IVPB ONE (09:48)
[2017-01-31] MEDS ORDERED: DIPHENHYDRAMINE 50 MG INJ ONE (09:49)
[2017-01-31] MEDS ORDERED: MANNITOL 25% 50 ML IV PRN (13:00)
--- NOTE | 2017-01-31 14:02 | PN ---
Date/Time of Note Date/Time of Note DATE: 01/31/17 TIME: 14:01 Assessment/Plan VTE Prophylaxis VTE Prophylaxis Intervention: SCD's Lines/Catheters IV Catheter Type (from Nrsg): Peripheral IV Urinary Cath still in place: Yes Reason Cath still needed: urinary retention Assessment/Plan Chief Complaint/Hosp Course Patient is a 71-year-old female with past medical history significant for CKD and hypertension who presents to [facility] after being sent by her primary care provider for acute renal failure. Assessment Acute kidney injury on chronic kidney disease Hypernatremia, mild Hyperchloremia hypertensive emergency, SBP >180 with renal failure. resolved Anion gap metabolic acidosis Elevated BUN Elevated phosphorus Obesity Anemia, normocytic Plan -nephrology consulted. FeNA, 12.5%. Cr still poor. nephrology ordered for permacath and HD today -amlodipine as we are holding losartan for MELISSA. terazosin as well -urinating well with baumann -watch BP closely, PRN hydralazine (although gives her anxiety) and sublingual clonidine prn -prn zofran for n/v Julian Velasquez DO. Problems: Subjective 24 Hr Interval Summary Free Text/Dictation no new complaints Exam/Review of Systems Vital Signs Vitals Vital Signs Date Time Temp Pulse Resp B/P Pulse Ox O2 Delivery O2 Flow Rate FiO2 01/31/17 12:25 98.0 80 16 140/60 97 01/28/17 16:57 Room Air Intake and Output 01/30/17 01/30/17 01/31/17 15:00 23:00 07:00 Intake Total 340 ml 1620 ml 680 ml Output Total 900 ml 900 ml Balance 340 ml 720 ml -220 ml Exam Physical exam General: Patient is laying in bed and answers questions appropriately Mentation: Patient is alert and oriented 4, Head: Normocephalic atraumatic Eyes: EOMI, pupils reactive to light Neck: Supple, nontender, midline Respiratory: Clear to auscultation bilaterally Cardiovascular: regular rate, no obvious murmurs Gastrointestinal: non-tender to palpation, bowel sounds heard.obese Neurological: Moves all extremities spontaneously Skin: No new skin lesions Results Result Diagram: 01/31/17 0425 01/31/175 Results 24 hrs Laboratory Tests Test 01/31/17 04:25 White Blood Count 11.9 H Red Blood Count 2.57 L Hemoglobin 7.7 L Hematocrit 23.6 L Mean Corpuscular Volume 91.8 Mean Corpuscular Hemoglobin 30.0 Mean Corpuscular Hemoglobin Concent 32.6 Red Cell Distribution Width 14.7 H Platelet Count 269 Mean Platelet Volume 10.3 Neutrophils % 75.4 Lymphocytes % 13.6 L Monocytes % 6.3 Eosinophils % 4.0 Basophils % 0.2 Nucleated Red Blood Cells % 0.0 Neutrophils # 9.0 H Lymphocytes # 1.6 Monocytes # 0.8 Eosinophils # 0.5 Basophils # 0.0 Nucleated Red Blood Cells # 0.0 Sodium Level 138 Potassium Level 4.6 Chloride Level 109 Carbon Dioxide Level 16 L Anion Gap 18 H Blood Urea Nitrogen 69 H Creatinine 7.32 H Glucose Level 85 Calcium Level 8.9 Phosphorus Level 6.6 H Magnesium Level 2.2 Hepatitis B Surface Antigen NEGATIVE Hepatitis B Core Total Antibody NEGATIVE Hepatitis C Antibody NEGATIVE Medications Medications Current Medications Hydralazine HCl (Apresoline) 10 mg Q4H PRN IV SBP>160 Last administered on 08:11; Admin Dose 10 MG; Start 01/28/17 at 18:00 Acetaminophen/ Hydrocodone Bitart ([place] (5/325)) 2 tab Q6H PRN PO SEVERE PAIN LEVEL 7-10; Start 01/28/17 at 18:30 Magnesium Hydroxide (Milk Of Mag) 30 ml DAILY PRN PO CONSTIPATION; Start at 18:30 Zolpidem Tartrate (Ambien) 5 mg QHS PRN PO SLEEP; Start 01/28/17 at 18:30 Amlodipine Besylate 10 mg 10 mg DAILY PO Last administered on 01/30/17 09:19; Admin Dose 10 MG; Start 01/29/17 at 09:00 Sodium Chloride (1/2 NS) 1,000 ml @ 60 mls/hr [id number] IV Last administered on 01/31/17 03:47; Admin Dose 60 MLS/HR; Start 01/28/17 at 18:30 Terazosin HCl (Hytrin) 1 mg HS PO Last administered on 01/30/17 20:36; Admin Dose 1 MG; Start 01/29/17 at 21:00 Clonidine (Catapres) 0.1 mg Q6H PRN PO BP >160; Start 01/29/17 at 10:00 Ondansetron HCl (Zofran Inj) 4 mg Q6H PRN IV NAUSEA AND/OR VOMITING Last administered on 01/29/17t 12:06; Admin Dose 4 MG; Start 01/29/17 at 12:00 JULIAN VELASQUEZ Jan 31, 2017 14:02
--- NOTE | 2017-01-31 14:32 | RADRPT ---
PROCEDURE: PLACEMENT OF RIGHT INTERNAL JUGULAR VENOUS TUNNELED DIALYSIS CATHETER. CLINICAL INDICATION: Renal failure. TECHNIQUE: Prior to the procedure, informed consent was obtained. Risks including bleeding, infection, and pneu mothorax were explained to the patient and/or the patient's family. The patient and/or the patient's family understood and was willing to proceed. A procedural pause was performed. The patient's name, date of , and procedure to be performed were verified. The central line was inserted with all elements of maximal sterile barrier technique. All of the following were used: head covering, facial mask, sterile gown, sterile gloves, a large sterile sheet, hand hygiene, and 2% chlorhexidine for cutaneous antisepsis. The right neck and anterior/superior chest wall was prepped and draped in usu al sterile fashion. Limited sonography of the right neck was then performed. Noted is a patent right internal jugular ve in. Ultrasound images were recorded and stored in the patient's medical record. Following the local injection of Xylocaine, the right internal jugular vein was punctured under sono graphic guidance with a 20-gauge needle through which a 0.018 inch floppy tip guidewire was advanced into the superior vena cava. The tract was dilated to 5 Mong[place] and the wire was then replaced with a 0.035 in Amplatz guidewire. A tunnel was then created from the anterior lateral aspect of the sup erior right chest wall to the puncture site in the neck and the catheter was pulled through the trac t. Serial dilatation was then performed and a 16 [place] peel away sheath was introduced. The 14.5 [place] 23cm tip to cuff Angiodynamics BioFlo DuraMax dialysis catheter was advanced through the 16 F rench peel-away sheath. The tip of the catheter was confirmed in position within the right atrium. T he peel-away sheath was removed. The 2 ports were each flushed with 2.3 ml of 1:1000 heparin. The c atheter was secured to the skin with 2-0 silk. The wound in the neck was closed with 4-0 Vicryl suture using subcuticular running technique. The site was dressed. The patient tolerated the proce dure well. COMPARISON: None. FINDINGS: Final radiographic images demonstrate the tip of the catheter in the upper right atrium. A total of 0.1 minutes of fluoroscopy time was used. The ultrasound images demonstrate the needle entering th e jugular vein. Ultrasound images were recorded and stored in the patient's medical record. 5 image s of the chest were obtained with image intensifier. IMPRESSION: 1. Percutaneous insertion of right internal jugular dialysis tunneled dialysis catheter under fluoro scopic and sonographic guidance. RPTAT: QQ .Matheus Landaverde MD, MD Date Time Electronically viewed and signed by .Matheus Landaverde MD, MD on 01/31/2017 14:31 .R/
--- NOTE | 2017-01-31 14:32 | RADRPT ---
PROCEDURE: Ultrasound guidance for placement of needle in right internal jugular vein. CLINICAL INDICATION: Venous access. TECHNIQUE: Prior to the procedure, informed consent was obtained. Risks including bleeding, infection, and pneu mothorax were explained to the patient. The patient understood and was willing to proceed. A procedu ral pause was performed. The patient's name, date of , and procedure to be performed were verif ied. The central line was inserted with all elements of maximal sterile barrier technique. All of th e following were used: head covering, facial mask, sterile gown, sterile gloves, a large sterile she et, hand hygiene, and 2% chlorhexidine for cutaneous antisepsis. The right neck and anterior/super ior chest wall was prepped and draped in usual sterile fashion. Limited sonography of the right neck was then performed. Noted is a patent right internal jugular ve in. Ultrasound images were recorded and stored in the patient's medical record. Following the local injection of Xylocaine, the right internal jugular vein was punctured under sono graphic guidance with a 20-gauge needle through which a 0.018 inch floppy tip guidewire was advanced into the superior vena cava. The patient tolerated the procedure well. The remainder of the proce dure was performed and dictated under separate cover. COMPARISON: None. FINDINGS: The ultrasound images demonstrate a patent right internal jugular vein. The subsequent images demon strate the needle entering the right internal jugular vein. IMPRESSION: 1. Ultrasound guidance for a needle placement in right internal jugular vein. RPTAT: QQ .Matheus Landaverde MD, Date Time Electronically viewed and signed by .Matheus Landaverde MD, on 01/31/2017 14:31 .R/
[2017-01-31] MEDS: HYDROCODONE/APAP (5/325) TAB PO PRN (19:47)
--- NOTE | 2017-01-31 19:54 | CONS ---
Date/Time of Note Date/Time of Note DATE: 01/31/17 TIME: 19:53 Assessment/Plan Assessment/Plan Chief Complaint/Hosp Course CKD 5 HYPERTENSIVE NEPHROSCLEROSIS METABOLIC ACIDOSIS ANEMIA POSS INTER ST NEPHRITES HYPOMAGNESEMIA BETTER PLAN PER ORDER HD PERMACATH OUT PT HD Problems: Consultation Date/Type/Reason Admit Date/Time Jan 28, 2017 at 15:23 Type of Consultation: RENAL 24 HR Interval Summary Constitutional: improved Exam/Review of Systems Vital Signs Vitals Vital Signs Date Time Temp Pulse Resp B/P Pulse Ox O2 Delivery O2 Flow Rate FiO2 01/31/17 16:00 70 18 01/31/17 14:18 98.8 143/68 96 01/28/17 16:57 Room Air Intake and Output 01/30/17 01/30/17 01/31/17 15:00 23:00 07:00 Intake Total 340 ml 1620 ml 680 ml Output Total 900 ml 900 ml Balance 340 ml 720 ml -220 ml Exam Respiratory: clear to auscultation Cardiovascular: regular rate and rhythm Gastrointestinal: bowel sounds (+), soft Extremities: normal pulses Results Result Diagram: 01/31/17 0425 01/31/17 0425 Results 24 hrs Laboratory Tests Test 01/31/17 04:25 White Blood Count 11.9 H Red Blood Count 2.57 L Hemoglobin 7.7 L Hematocrit 23.6 L Mean Corpuscular Volume 91.8 Mean Corpuscular Hemoglobin 30.0 Mean Corpuscular Hemoglobin Concent 32.6 Red Cell Distribution Width 14.7 H Platelet Count 269 Mean Platelet Volume 10.3 Neutrophils % 75.4 Lymphocytes % 13.6 L Monocytes % 6.3 Eosinophils % 4.0 Basophils % 0.2 Nucleated Red Blood Cells % 0.0 Neutrophils # 9.0 H Lymphocytes # 1.6 Monocytes # 0.8 Eosinophils # 0.5 Basophils # 0.0 Nucleated Red Blood Cells # 0.0 Sodium Level 138 Potassium Level 4.6 Chloride Level 109 Carbon Dioxide Level 16 L Anion Gap 18 H Blood Urea Nitrogen 69 H Creatinine 7.32 H Glucose Level 85 Calcium Level 8.9 Phosphorus Level 6.6 H Magnesium Level 2.2 Hepatitis B Surface Antigen NEGATIVE Hepatitis B Core Total Antibody NEGATIVE Hepatitis C Antibody NEGATIVE Medications Medications Current Medications Hydralazine HCl (Apresoline) 10 mg Q4H PRN IV SBP>160 Last administered on 08:11; Admin Dose 10 MG; Start 01/28/17 at 18:00 Acetaminophen/ Hydrocodone Bitart ([place] (5/325)) 2 tab Q6H PRN PO SEVERE PAIN LEVEL 7-10 Last administered on 01/31/17 19:47; Admin Dose 2 TAB; Start at 18:30 Magnesium Hydroxide (Milk Of Mag) 30 ml DAILY PRN PO CONSTIPATION; Start at 18:30 Zolpidem Tartrate (Ambien) 5 mg QHS PRN PO SLEEP; Start 01/28/17 at 18:30 Amlodipine Besylate 10 mg 10 mg DAILY PO Last administered on 01/30/17 09:19; Admin Dose 10 MG; Start 01/29/17 at 09:00 Sodium Chloride (1/2 NS) 1,000 ml @ 60 mls/hr [id number] IV Last administered on 01/31/17 03:47; Admin Dose 60 MLS/HR; Start 01/28/17 at 18:30 Terazosin HCl (Hytrin) 1 mg HS PO Last administered on 01/30/17 20:36; Admin Dose 1 MG; Start 01/29/17 at 21:00 Clonidine (Catapres) 0.1 mg Q6H PRN PO BP >160; Start 01/29/17 at 10:00 Ondansetron HCl (Zofran Inj) 4 mg Q6H PRN IV NAUSEA AND/OR VOMITING Last administered on 01/29/17 12:06; Admin Dose 4 MG; Start 01/29/17 at 12:00 FRANCISCO BAUER MD Jan 31, 2017 19:54
[2017-01-31] MEDS: TERAZOSIN 1 MG CAP PO SCH (21:44)
[2017-02-01] VITALS (11 sets, daily range): BP systolic 140–167; BP diastolic 72–87; PULSE 7–82; RESP 18
[2017-02-01] MEDS: HYDROCODONE/APAP (5/325) TAB PO PRN ×2 (02:16→22:49)
[2017-02-01] MEDS: SOD CHLORIDE 0.45% 1,000 ML IV SCH ×2 (02:17→22:49)
[2017-02-01 06:30] LABS: BASOPHILS % 0.1 % (0.0-2.0); EOSINOPHILS # 0.2 10^3/ul (0.0-0.5); EOSINOPHILS % 1.4 % (0.0-7.0); HEMATOCRIT 24.9 % (37.0-47.0); HEMOGLOBIN 8.1 g/dl (12.0-16.0); MEAN CORPUSCULAR HEMOGLOBIN 29.2 pg (29.0-33.0); MEAN CORPUSCULAR HGB CONC 32.5 g/dl (32.0-37.0); MEAN CORPUSCULAR VOLUME 89.9 fl (82.0-101.0); MEAN PLATELET VOLUME 9.9 fl (7.4-10.4); MONOCYTES % 7.2 % (0.0-11.0); NEUTROPHIL # 12.1 10^3/ul (1.6-7.5); NEUTROPHILS % 83.7 % (39.0-77.0); PLATELET COUNT 251 10^3/UL (140-415); RED BLOOD COUNT 2.77 10^6/ul (4.20-5.40); RED CELL DISTRIBUTION WIDTH 14.4 % (11.5-14.5); WHITE BLOOD COUNT 14.4 10^3/ul (4.8-10.8)
[2017-02-01 06:55] LABS: CALCIUM 8.8 mg/dl (8.4-10.2); CREATININE 5.41 mg/dl (0.44-1.00); MAGNESIUM 1.9 mg/dl (1.7-2.5); PHOSPHORUS 5.7 mg/dl (2.5-4.9); POTASSIUM 4.2 mmol/L (3.5-5.1)
[2017-02-01] MEDS: AMLODIPINE 10 MG TAB PO SCH (08:11)
[2017-02-01] MEDS: ONDANSETRON 4 MG INJ IV PRN (08:11)
--- NOTE | 2017-02-01 11:57 | CONS ---
Date/Time of Note Date/Time of Note DATE: 02/01/17 TIME: 11:53 Assessment/Plan Assessment/Plan Chief Complaint/Hosp Course 1. CKD 5 2. HYPERTENSIon, uncontrollable 3. NEPHROSCLEROSIS 4. ANEMIA chronic disease 5. Obesity Problems: Additional Assessment/Plan 1. Continue HD 2. Better Hypertension control 3. Control of hyperphosphatemia Consultation Date/Type/Reason Admit Date/Time Jan 28, 2017 at 15:23 Initial Consult Date 01/28/2017 Type of Consultation: RENAL Reason for Consultation Dr Cardenas 24 HR Interval Summary Constitutional: improved Exam/Review of Systems Vital Signs Vitals Vital Signs Date Time Temp Pulse Resp B/P Pulse Ox O2 Delivery O2 Flow Rate FiO2 02/01/17 07:35 98.3 84 18 167/81 95 01/28/17 16:57 Room Air Intake and Output 01/31/17 01/31/17 02/01/17 15:00 23:00 07:00 Intake Total 1000 ml 1120 ml Output Total 1900 ml 750 ml Balance -900 ml 370 ml Exam Constitutional: alert, oriented Neck: other (Antonio cath), supple Cardiovascular: other (lower extremities edema), regular rate and rhythm Gastrointestinal: soft Genitourinary - Female: other (baumann) Neurological: FILLING HAULER II-XII intact Results Result Diagram: 02/01/17 0604 02/01/17 0604 Results 24 hrs Laboratory Tests Test 02/01/17 06:04 White Blood Count 14.4 #H Red Blood Count 2.77 L Hemoglobin 8.1 L Hematocrit 24.9 L Mean Corpuscular Volume 89.9 Mean Corpuscular Hemoglobin 29.2 Mean Corpuscular Hemoglobin Concent 32.5 Red Cell Distribution Width 14.4 Platelet Count 251 Mean Platelet Volume 9.9 Neutrophils % 83.7 H Lymphocytes % 7.0 L Monocytes % 7.2 Eosinophils % 1.4 Basophils % 0.1 Nucleated Red Blood Cells % 0.0 Neutrophils # 12.1 H Lymphocytes # 1.0 Monocytes # 1.0 H Eosinophils # 0.2 Basophils # 0.0 Nucleated Red Blood Cells # 0.0 Sodium Level 141 Potassium Level 4.2 Chloride Level 100 Carbon Dioxide Level 22 Anion Gap 23 H Blood Urea Nitrogen 47 #H Creatinine 5.41 H Glucose Level 129 # Calcium Level 8.8 Phosphorus Level 5.7 H Magnesium Level 1.9 Medications Medications Current Medications Hydralazine HCl (Apresoline) 10 mg Q4H PRN IV SBP>160 Last administered on 08:11; Admin Dose 10 MG; Start 01/28/17 at 18:00 Acetaminophen/ Hydrocodone Bitart ([place] (5/325)) 2 tab Q6H PRN PO SEVERE PAIN LEVEL 7-10 Last administered on 02/01/17 02:16; Admin Dose 2 TAB; Start at 18:30 Magnesium Hydroxide (Milk Of Mag) 30 ml DAILY PRN PO CONSTIPATION; Start at 18:30 Zolpidem Tartrate (Ambien) 5 mg QHS PRN PO SLEEP; Start 01/28/17 at 18:30 Amlodipine Besylate 10 mg 10 mg DAILY PO Last administered on 02/01/17 08:11; Admin Dose 10 MG; Start 01/29/17 at 09:00 Sodium Chloride (1/2 NS) 1,000 ml @ 60 mls/hr [id number] IV Last administered on 02/01/17 02:17; Admin Dose 60 MLS/HR; Start 01/28/17 at 18:30 Terazosin HCl (Hytrin) 1 mg HS PO Last administered on 01/31/17 21:44; Admin Dose 1 MG; Start 01/29/17 at 21:00 Clonidine (Catapres) 0.1 mg Q6H PRN PO BP >160; Start 01/29/17 at 10:00 Ondansetron HCl (Zofran Inj) 4 mg Q6H PRN IV NAUSEA AND/OR VOMITING Last administered on 02/01/17 08:11; Admin Dose 4 MG; Start 01/29/17 at 12:00 Cholecalciferol (Vitamin D) 1,000 unit DAILY PO ; Start 02/01/17 at 12:00; Status HERON ARCHIBALD Feb 01, 2017 11:57
--- NOTE | 2017-02-01 12:41 | PDOCDIS ---
Discharge Instructions CONDITION Patient Condition: Stable HOME CARE INSTRUCTIONS: Special Diet: renal diet FOLLOW UP/APPOINTMENTS Follow-up Plan Please follow up with [facility], Dr. Matt Cardenas as soon as possible or have your primary care physician refer you to a [facility] as soon as possible. Please go to all your dialysis appointments. New blood pressure medications are included. Stop old blood pressure medications SEEMA VELASQUEZ Feb 01, 2017 12:41
[2017-02-01] MEDS ORDERED: AMLO-147 PO (12:45)
[2017-02-01] MEDS ORDERED: TERA1CAP39 PO (12:45)
[2017-02-01] MEDS ORDERED: HYDR-3671 PO (12:45)
[2017-02-01] MEDS ORDERED: CALC667C PO (12:45)
[2017-02-01] MEDS ORDERED: CHOL100062 PO (12:45)
[2017-02-01] MEDS: CHOLECALCIFEROL 1,000 UNIT TAB PO SCH (13:36)
--- NOTE | 2017-02-01 14:56 | DS ---
Date/Time of Note Date/Time of Note DATE: 02/01/17 TIME: 14:56 Discharge Summary Admission/Discharge Info Admit Date/Time Jan 28, 2017 at 15:23 Discharge Date/Time Patient Condition: Stable Hx of Present Illness Patient is a 71-year-old female with a past medical history significant for CKD and hypertension who presents to [facility] after following up with her primary care provider who incidentally found an elevated creatinine. Patient only takes losartan 100 mg daily and has not taken the medication today which is likely the reasoning behind her elevated blood pressure. Patient states that in [place] her physicians always mentioned that her poor renal function, however they stated it was not severe enough for medication or dialysis at this time. Patient has no other acute complaints. Denies nausea vomiting, headache, chest pain, abdominal pain. No bowel issues however does have a history of mild urinary retention. PMH: Hypertension and CKD PSH: Tubal ligation many years ago Social: Denies smoking, drinking, recreational drugs Meds: Losartan 100 mg daily Hospital Course Patient is a 71-year-old female with past medical history significant for chronic kidney disease and hypertension who presented to [facility] after being sent by her primary care for acute renal failure. Patient's only previous medication was losartan and benazepril and nephrology consult during this admission believes that it may be a combination of hypertension and WAI inhibitor induced kidney failure. Patient was monitored for a few days hoping for improving kidney function however creatinine did not improve and patient was given a permacatheter and started on hemodialysis. Patient had no complaints during this time and will be discharged with a change in the pressure medications as well as new medications for her new diagnosis of CKD stage V with hemodialysis. Patient will follow up with Dr. Cardenas in the outpatient setting or other decorator street and building and case management will make sure. Has a dialysis chair appointment before discharge. discharge diagnosis Acute kidney injury on chronic kidney disease CKD stage 5 on hemodialysis Hypernatremia, mild Hyperchloremia hypertensive emergency, SBP >180 with renal failure. resolved Anion gap metabolic acidosis, resolving Elevated BUN Elevated phosphorus Obesity Anemia, normocytic Home Meds Active Scripts Cholecalciferol* (Vitamin D3*) 1,000 Unit Tablet, 1000 UNIT PO DAILY for 30 Days , #30 TAB 2 Refills Prov:SEEMA VELASQUEZ 02/01/17 Calcium Acetate* (Calcium Acetate*) 667 Mg Capsule, 667 MG PO WITH MEALS for 30 Days, #90 CAP 2 Refills Prov:SEEMA VELASQUEZ J 02/01/17 Hydralazine Hcl* (Hydralazine Hcl*) 25 Mg Tab, 25 MG PO TID for 30 Days, #90 TAB 2 Refills Prov:SEEMA VELASQUEZ J 02/01/17 Amlodipine Besylate* (Amlodipine Besylate*) 10 Mg Tablet, 10 MG PO DAILY for 30 Days, #30 TAB 2 Refills Prov:SEEMA VELASQUEZ J 02/01/17 Terazosin Hcl* (Hytrin*) 1 Mg Cap, 1 MG PO HS for 30 Days, #30 CAP 2 Refills Prov:SEEMA VELASQUEZ J 02/01/17 Reported Medications Losartan Potassium* (Losartan Potassium*) 100 Mg Tablet, 100 MG PO DAILY, TAB 01/28/[address] [facility] Time spent on discharge: > 30 minutes Pending Labs Laboratory Tests Test 02/01/17 06:04 White Blood Count 14.410^3/ul (4.8-10.8) Red Blood Count 2.7710^6/ul (4.20-5.40) Hemoglobin 8.1g/dl (12.0-16.0) Hematocrit 24.9% (37.0-47.0) Mean Corpuscular Volume 89.9fl (82.0-101.0) Mean Corpuscular Hemoglobin 29.2pg (29.0-33.0) Mean Corpuscular Hemoglobin Concent 32.5g/dl (32.0-37.0) Red Cell Distribution Width 14.4% (11.5-14.5) Platelet Count 62419^3/UL (140-415) Mean Platelet Volume 9.9fl (7.4-10.4) Neutrophils % 83.7% (39.0-77.0) Lymphocytes % 7.0% (15.0-51.0) Monocytes % 7.2% (0.0-11.0) Eosinophils % 1.4% (0.0-7.0) Basophils % 0.1% (0.0-2.0) Nucleated Red Blood Cells % 0.0/100WBC (0.0-0.0) Neutrophils # 12.110^3/ul (1.6-7.5) Lymphocytes # 1.010^3/ul (0.8-2.9) Monocytes # 1.010^3/ul (0.3-0.9) Eosinophils # 0.210^3/ul (0.0-0.5) Basophils # 0.010^3/ul (0.0-0.1) Nucleated Red Blood Cells # 0.010^3/ul (0.0-0.0) Sodium Level 141mmol/L (135-144) Potassium Level 4.2mmol/L (3.5-5.1) Chloride Level 100mmol/L (97-110) Carbon Dioxide Level 22mmol/L (21-31) Anion Gap 23 (8-16) Blood Urea Nitrogen 47mg/dl (7-20) Creatinine 5.41mg/dl (0.44-1.00) Glucose Level 129mg/dl (70-220) Calcium Level 8.8mg/dl (8.4-10.2) Phosphorus Level 5.7mg/dl (2.5-4.9) Magnesium Level 1.9mg/dl (1.7-2.5) SEEMA VELASQUEZ Feb 01, 2017 14:56
[2017-02-01] MEDS: CALCIUM ACETATE 667 MG CAP PO SCH (18:43)
[2017-02-01] MEDS: TERAZOSIN 1 MG CAP PO SCH (21:17)
[2017-02-02] VITALS (9 sets, daily range): BP systolic 120–142; BP diastolic 65–87; PULSE 74–88; RESP 16–19
[2017-02-02 06:02] LABS: CALCIUM 8.8 mg/dl (8.4-10.2); CREATININE 4.48 mg/dl (0.44-1.00); POTASSIUM 4.2 mmol/L (3.5-5.1)
[2017-02-02] MEDS: CHOLECALCIFEROL 1,000 UNIT TAB PO SCH (08:34)
[2017-02-02] MEDS: HYDROCODONE/APAP (5/325) TAB PO PRN ×3 (08:34→22:21)
[2017-02-02] MEDS: AMLODIPINE 10 MG TAB PO SCH (08:35)
[2017-02-02] MEDS: CALCIUM ACETATE 667 MG CAP PO SCH ×3 (08:35→17:42)
--- NOTE | 2017-02-02 11:52 | CONS ---
Date/Time of Note Date/Time of Note DATE: 02/02/17 TIME: 11:51 Assessment/Plan Assessment/Plan Chief Complaint/Hosp Course 1. CKD 5 2. HYPERTENSIon, uncontrollable 3. NEPHROSCLEROSIS 4. ANEMIA chronic disease 5. Obesity Problems: Additional Assessment/Plan 1. HD as needed 2. Normalization of kidney function 3. better HTN control Consultation Date/Type/Reason Admit Date/Time Jan 28, 2017 at 15:23 Initial Consult Date 01/28/2017 Type of Consultation: RENAL Reason for Consultation Jeremiah Cardenas 24 HR Interval Summary Constitutional: improved, no complaints Exam/Review of Systems Vital Signs Vitals Vital Signs Date Time Temp Pulse Resp B/P Pulse Ox O2 Delivery O2 Flow Rate FiO2 02/02/17 07:35 98.3 83 16 142/78 93 Intake and Output 02/01/17 02/01/17 02/02/17 15:00 23:00 07:00 Intake Total 300 ml 1600 ml 810 ml Output Total 1300 ml 800 ml 1000 ml Balance -1000 ml 800 ml -190 ml Exam Constitutional: alert, oriented Respiratory: clear to auscultation Cardiovascular: regular rate and rhythm Results Result Diagram: 02/01/17 0604 02/02/17 0425 Results 24 hrs Laboratory Tests Test 02/02/17 04:25 Sodium Level 137 Potassium Level 4.2 Chloride Level 97 Carbon Dioxide Level 25 Anion Gap 19 H Blood Urea Nitrogen 38 H Creatinine 4.48 H Glucose Level 104 Calcium Level 8.8 Medications Medications Current Medications Acetaminophen/ Hydrocodone Bitart ([place] (5/325)) 2 tab Q6H PRN PO SEVERE PAIN LEVEL 7-10 Last administered on 02/02/17 08:34; Admin Dose 2 TAB; Start at 18:30 Magnesium Hydroxide (Milk Of Mag) 30 ml DAILY PRN PO CONSTIPATION; Start at 18:30 Zolpidem Tartrate (Ambien) 5 mg QHS PRN PO SLEEP; Start 01/28/17 at 18:30 Amlodipine Besylate (Norvasc) 10 mg DAILY PO Last administered on 02/02/17 08: 35; Admin Dose 10 MG; Start 01/29/17 at 09:00 Terazosin HCl (Hytrin) 1 mg HS PO Last administered on 02/01/17 21:17; Admin Dose 1 MG; Start 01/29/17 at 21:00 Clonidine (Catapres) 0.1 mg Q6H PRN PO BP >160; Start 01/29/17 at 10:00 Ondansetron HCl (Zofran Inj) 4 mg Q6H PRN IV NAUSEA AND/OR VOMITING Last administered on 02/01/17 08:11; Admin Dose 4 MG; Start 01/29/17 at 12:00 Cholecalciferol (Vitamin D) 1,000 unit DAILY PO Last administered on 02/02/17 08:34; Admin Dose 1,000 UNIT; Start 02/01/17 at 12:00 Hydralazine HCl (Apresoline) 25 mg TID PO Last administered on 02/02/17 08:35; Admin Dose 25 MG; Start 02/01/17 at 13:00 HERON MCHUGH Feb 02, 2017 11:52
[2017-02-02] MEDS ORDERED: MANNITOL 25% 50 ML IV PRN (12:30)
--- NOTE | 2017-02-02 14:23 | PN ---
Date/Time of Note Date/Time of Note DATE: 02/02/17 TIME: 14:20 Assessment/Plan VTE Prophylaxis VTE Prophylaxis Intervention: ambulation Lines/Catheters IV Catheter Type (from [facility]): Saline Lock Urinary Cath still in place: No Assessment/Plan Chief Complaint/Hosp Course Patient is a 71-year-old female with past medical history significant for CKD and hypertension who presents to [facility] after being sent by her primary care provider for acute renal failure. Assessment Acute kidney injury on chronic kidney disease Hypernatremia, mild Hyperchloremia hypertensive emergency, SBP >180 with renal failure. resolved Anion gap metabolic acidosis Elevated BUN Elevated phosphorus Obesity Anemia, normocytic Plan -nephrology consulted. patient now on dialysis, HD done today -amlodipine as we are holding losartan for MELISSA. on hydralzine and adding coreg today for tighter BP control. -watch BP closely, PRN sublingual clonidine prn -prn zofran for n/v -did not DC yesterday as patient did not have a dialysis bed available. will DC when bed is available. Problems: Subjective 24 Hr Interval Summary Free Text/Dictation no acute complaints Exam/Review of Systems Vital Signs Vitals Vital Signs Date Time Temp Pulse Resp B/P Pulse Ox O2 Delivery O2 Flow Rate FiO2 02/02/17 13:40 88 02/02/17 12:10 19 02/02/17 07:35 98.3 142/78 93 Intake and Output 02/01/17 02/01/17 02/02/17 15:00 23:00 07:00 Intake Total 300 ml 1600 ml 810 ml Output Total 1300 ml 800 ml 1000 ml Balance -1000 ml 800 ml -190 ml Exam Physical exam General: Patient is laying in bed and answers questions appropriately Mentation: Patient is alert and oriented 4, Head: Normocephalic atraumatic Eyes: EOMI, pupils reactive to light Neck: Supple, nontender, midline Respiratory: Clear to auscultation bilaterally Cardiovascular: regular rate, no obvious murmurs Gastrointestinal: non-tender to palpation, bowel sounds heard.obese Neurological: Moves all extremities spontaneously Skin: No new skin lesions Results Result Diagram: 02/01/17 0604 02/02/17 0425 Results 24 hrs Laboratory Tests Test 02/02/17 04:25 Sodium Level 137 Potassium Level 4.2 Chloride Level 97 Carbon Dioxide Level 25 Anion Gap 19 H Blood Urea Nitrogen 38 H Creatinine 4.48 H Glucose Level 104 Calcium Level 8.8 Medications Medications Current Medications Acetaminophen/ Hydrocodone Bitart ([place] (5/325)) 2 tab Q6H PRN PO SEVERE PAIN LEVEL 7-10 Last administered on 02/02/17 08:34; Admin Dose 2 TAB; Start at 18:30 Magnesium Hydroxide (Milk Of Mag) 30 ml DAILY PRN PO CONSTIPATION; Start at 18:30 Zolpidem Tartrate (Ambien) 5 mg QHS PRN PO SLEEP; Start 01/28/17 at 18:30 Amlodipine Besylate (Norvasc) 10 mg DAILY PO Last administered on 02/02/17 08: 35; Admin Dose 10 MG; Start 01/29/17 at 09:00 Terazosin HCl (Hytrin) 1 mg HS PO Last administered on 02/01/17 21:17; Admin Dose 1 MG; Start 01/29/17 at 21:00 Clonidine (Catapres) 0.1 mg Q6H PRN PO BP >160; Start 01/29/17 at 10:00 Ondansetron HCl (Zofran Inj) 4 mg Q6H PRN IV NAUSEA AND/OR VOMITING Last administered on 02/01/17 08:11; Admin Dose 4 MG; Start 01/29/17 at 12:00 Cholecalciferol (Vitamin D) 1,000 unit DAILY PO Last administered on 02/02/17 08:34; Admin Dose 1,000 UNIT; Start 02/01/17 at 12:00 Hydralazine HCl (Apresoline) 25 mg TID PO Last administered on 02/02/17 08:35; Admin Dose 25 MG; Start 02/01/17 at 13:00 SEEMA VELASQUEZ Feb 02, 2017 14:23
[2017-02-03 02:52] VITALS: BP 144/70; RESP 16
[2017-02-03] MEDS: CALCIUM ACETATE 667 MG CAP PO SCH ×3 (08:45→17:26)
[2017-02-03] MEDS: HYDROCODONE/APAP (5/325) TAB PO PRN (08:46)
[2017-02-03] MEDS: CHOLECALCIFEROL 1,000 UNIT TAB PO SCH (08:47)
[2017-02-03] MEDS: AMLODIPINE 10 MG TAB PO SCH (08:47)
[2017-02-03 10:00] VITALS: BP 139/77; RESP 17
--- NOTE | 2017-02-03 13:10 | PN ---
Date/Time of Note Date/Time of Note DATE: 02/03/17 TIME: 13:09 Assessment/Plan VTE Prophylaxis VTE Prophylaxis Intervention: ambulation Lines/Catheters IV Catheter Type (from Nrsg): Saline Lock Urinary Cath still in place: No Assessment/Plan Chief Complaint/Hosp Course Patient is a 71-year-old female with past medical history significant for CKD and hypertension who presents to [facility] after being sent by her primary care provider for acute renal failure. Assessment Acute kidney injury on chronic kidney disease Hypernatremia, mild Hyperchloremia hypertensive emergency, SBP >180 with renal failure. resolved Anion gap metabolic acidosis Elevated BUN Elevated phosphorus Obesity Anemia, normocytic Plan -nephrology consulted. patient now on dialysis, HD done today -amlodipine as we are holding losartan for MELISSA. on hydralzine and added coreg yesterday, BP better. -watch BP closely, PRN sublingual clonidine prn -prn zofran for n/v -did not DC saturday as patient did not have a dialysis bed available. will DC when bed is available. (likely saturday as dialysis center office staff return saturday ) Problems: Subjective 24 Hr Interval Summary Free Text/Dictation no acute issues Exam/Review of Systems Vital Signs Vitals Vital Signs Date Time Temp Pulse Resp B/P Pulse Ox O2 Delivery O2 Flow Rate FiO2 02/03/17 10:00 98.7 84 17 139/77 94 Intake and Output 02/02/17 02/02/17 02/03/17 15:00 23:00 07:00 Intake Total 940 ml 720 ml 520 ml Output Total 2300 ml 2500 ml Balance -1360 ml -1780 ml 520 ml Exam Physical exam General: Patient is laying in bed and answers questions appropriately Mentation: Patient is alert and oriented 4, Head: Normocephalic atraumatic Eyes: EOMI, pupils reactive to light Neck: Supple, nontender, midline Respiratory: Clear to auscultation bilaterally Cardiovascular: regular rate, no obvious murmurs Gastrointestinal: non-tender to palpation, bowel sounds heard.obese Neurological: Moves all extremities spontaneously Skin: No new skin lesions Results Result Diagram: 02/01/17 0604 02/02/17 0429 Medications Medications Current Medications Acetaminophen/ Hydrocodone Bitart ([place] (5/325)) 2 tab Q6H PRN PO SEVERE PAIN LEVEL 7-10 Last administered on 02/03/17 08:46; Admin Dose 2 TAB; Start at 18:30 Magnesium Hydroxide (Milk Of Mag) 30 ml DAILY PRN PO CONSTIPATION; Start at 18:30 Zolpidem Tartrate (Ambien) 5 mg QHS PRN PO SLEEP; Start 01/28/17 at 18:30 Amlodipine Besylate (Norvasc) 10 mg DAILY PO Last administered on 02/03/17 08: 47; Admin Dose 10 MG; Start 01/29/17 at 09:00 Clonidine (Catapres) 0.1 mg Q6H PRN PO BP >160; Start 01/29/17 at 10:00 Ondansetron HCl (Zofran Inj) 4 mg Q6H PRN IV NAUSEA AND/OR VOMITING Last administered on 02/01/17 08:11; Admin Dose 4 MG; Start 01/29/17 at 12:00 Cholecalciferol (Vitamin D) 1,000 unit DAILY PO Last administered on 02/03/17 08:47; Admin Dose 1,000 UNIT; Start 02/01/17 at 12:00 Hydralazine HCl (Apresoline) 25 mg TID PO Last administered on 02/03/17 08:46; Admin Dose 25 MG; Start 02/01/17 at 13:00 Carvedilol (Coreg) 12.5 mg BID PO Last administered on 02/03/17 08:46; Admin Dose 12.5 MG; Start 02/02/17 at 14:30 SEEMA VELASQUEZ Feb 03, 2017 13:10
[2017-02-03 15:54] VITALS: BP 121/64; RESP 18
--- NOTE | 2017-02-03 18:10 | CONS ---
Date/Time of Note Date/Time of Note DATE: 02/03/17 TIME: 18:09 Assessment/Plan Assessment/Plan Chief Complaint/Hosp Course CKD 5 HYPERTENSIVE NEPHROSCLEROSIS METABOLIC ACIDOSIS ANEMIA POSS INTER ST NEPHRITES HYPOMAGNESEMIA BETTER PLAN PER ORDER HD PERMACATH OUT PT HD PENDING Problems: Consultation Date/Type/Reason Admit Date/Time Jan 28, 2017 at 15:23 Type of Consultation: RENAL 24 HR Interval Summary Constitutional: no complaints Exam/Review of Systems Vital Signs Vitals Vital Signs Date Time Temp Pulse Resp B/P Pulse Ox O2 Delivery O2 Flow Rate FiO2 02/03/17 15:54 97.9 74 18 121/64 94 Intake and Output 02/02/17 02/02/17 02/03/17 15:00 23:00 07:00 Intake Total 940 ml 720 ml 520 ml Output Total 2300 ml 2500 ml Balance -1360 ml -1780 ml 520 ml Exam Neck: supple Respiratory: clear to auscultation Cardiovascular: regular rate and rhythm Gastrointestinal: soft Extremities: No edema Results Result Diagram: 02/01/17 0604 02/02/17 0425 Medications Medications Current Medications Acetaminophen/ Hydrocodone Bitart ([place] (5/325)) 2 tab Q6H PRN PO SEVERE PAIN LEVEL 7-10 Last administered on 02/03/17 08:46; Admin Dose 2 TAB; Start at 18:30 Magnesium Hydroxide (Milk Of Mag) 30 ml DAILY PRN PO CONSTIPATION; Start at 18:30 Zolpidem Tartrate (Ambien) 5 mg QHS PRN PO SLEEP; Start 01/28/17 at 18:30 Amlodipine Besylate (Norvasc) 10 mg DAILY PO Last administered on 02/03/17 08: 47; Admin Dose 10 MG; Start 01/29/17 at 09:00 Clonidine (Catapres) 0.1 mg Q6H PRN PO BP >160; Start 01/29/17 at 10:00 Ondansetron HCl (Zofran Inj) 4 mg Q6H PRN IV NAUSEA AND/OR VOMITING Last administered on 02/01/17 08:11; Admin Dose 4 MG; Start 01/29/17 at 12:00 Cholecalciferol (Vitamin D) 1,000 unit DAILY PO Last administered on 02/03/17 08:47; Admin Dose 1,000 UNIT; Start 02/01/17 at 12:00 Hydralazine HCl (Apresoline) 25 mg TID PO Last administered on 02/03/17 15:44; Admin Dose 25 MG; Start 02/01/17 at 13:00 Carvedilol (Coreg) 12.5 mg BID PO Last administered on 02/03/17 08:46; Admin Dose 12.5 MG; Start 02/02/17 at 14:30 FRANCISCO BAUER MD Feb 03, 2017 18:10
[2017-02-03 19:47] VITALS: BP 128/65; RESP 16
[2017-02-04] VITALS (11 sets, daily range): BP systolic 107–139; BP diastolic 61–87; PULSE 77–82; RESP 17–20
[2017-02-04] MEDS: CALCIUM ACETATE 667 MG CAP PO SCH ×3 (07:56→17:37)
[2017-02-04] MEDS: AMLODIPINE 10 MG TAB PO SCH (09:00)
[2017-02-04] MEDS: CHOLECALCIFEROL 1,000 UNIT TAB PO SCH (09:31)
--- NOTE | 2017-02-04 12:49 | PN ---
Date/Time of Note Date/Time of Note DATE: 02/04/17 TIME: 12:47 Assessment/Plan VTE Prophylaxis VTE Prophylaxis Intervention: SCD's Lines/Catheters IV Catheter Type (from Nrsg): Saline Lock Urinary Cath still in place: No Assessment/Plan Assessment/Plan Acute kidney injury on chronic kidney disease Hypernatremia, mild Hyperchloremia hypertensive emergency, SBP >180 with renal failure. resolved Anion gap metabolic acidosis Obesity Anemia, normocytic Plan: Plan for HD today Dialysis arrangement done - US renal - MWF at 5 pm X ray right elbow Pain control possible d/c tomorrow Exam/Review of Systems Vital Signs Vitals Vital Signs Date Time Temp Pulse Resp B/P Pulse Ox O2 Delivery O2 Flow Rate FiO2 02/04/17 11:00 82 02/04/17 11:00 16 02/04/17 08:40 98.6 133/73 96 Intake and Output 02/03/17 02/03/17 02/04/17 15:00 23:00 07:00 Intake Total 670 ml 260 ml Balance 670 ml 260 ml Exam Constitutional: alert Psych: no complaints Head: normocephalic Eyes: nl conjunctiva Neck: supple Respiratory: clear to auscultation Gastrointestinal: non-tender, soft Neurological: JELLY FILTER TENDER II-XII intact Skin: nl turgor Lymph: nl lymph nodes Results Result Diagram: 02/01/17 0604 02/02/17 0425 Medications Medications Current Medications Acetaminophen/ Hydrocodone Bitart ([place] (5/325)) 2 tab Q6H PRN PO SEVERE PAIN LEVEL 7-10 Last administered on 02/03/17 08:46; Admin Dose 2 TAB; Start at 18:30 Magnesium Hydroxide (Milk Of Mag) 30 ml DAILY PRN PO CONSTIPATION; Start at 18:30 Zolpidem Tartrate (Ambien) 5 mg QHS PRN PO SLEEP; Start 01/28/17 at 18:30 Amlodipine Besylate (Norvasc) 10 mg DAILY PO Last administered on 02/03/17 08: 47; Admin Dose 10 MG; Start 01/29/17 at 09:00 Clonidine (Catapres) 0.1 mg Q6H PRN PO BP >160; Start 01/29/17 at 10:00 Ondansetron HCl (Zofran Inj) 4 mg Q6H PRN IV NAUSEA AND/OR VOMITING Last administered on 02/01/17 08:11; Admin Dose 4 MG; Start 01/29/17 at 12:00 Cholecalciferol (Vitamin D) 1,000 unit DAILY PO Last administered on 02/04/17 09:31; Admin Dose 1,000 UNIT; Start 02/01/17 at 12:00 Hydralazine HCl (Apresoline) 25 mg TID PO Last administered on 02/04/17 12:29; Admin Dose 25 MG; Start 02/01/17 at 13:00 Carvedilol (Coreg) 12.5 mg BID PO Last administered on 02/03/17 21:39; Admin Dose 12.5 MG; Start 02/02/17 at 14:30 YOHANNES GARCÍA MD Feb 04, 2017 12:49
--- NOTE | 2017-02-04 18:17 | CONS ---
Date/Time of Note Date/Time of Note DATE: 02/04/17 TIME: 18:15 Assessment/Plan Assessment/Plan Chief Complaint/Hosp Course Acute kidney injury on chronic kidney disease s/P HD Hypernatremia, mild Hyperchloremia hypertensive emergency, SBP >180 with renal failure. resolved Anion gap metabolic acidosis Obesity Anemia, normocytic HD done today, arranged for [facility] US renal as [facility] Left elbow Xray pending Possible d/c tmw Problems: Consultation Date/Type/Reason Admit Date/Time Jan 28, 2017 at 15:23 Initial Consult Date Type of Consultation: RENAL 24 HR Interval Summary Free Text/Dictation Pt felt tried after HD session, improved now Pain in Left elbow, pending xray Exam/Review of Systems Vital Signs Vitals Vital Signs Date Time Temp Pulse Resp B/P Pulse Ox O2 Delivery O2 Flow Rate FiO2 02/04/17 15:11 98.4 79 20 107/66 98 Intake and Output 02/03/17 02/03/17 02/04/17 15:00 23:00 07:00 Intake Total 670 ml 260 ml Balance 670 ml 260 ml Results Result Diagram: 02/01/17 0604 02/02/17 0425 Medications Medications Current Medications Acetaminophen/ Hydrocodone Bitart ([place] (5/325)) 2 tab Q6H PRN PO SEVERE PAIN LEVEL 7-10 Last administered on 02/03/17 08:46; Admin Dose 2 TAB; Start at 18:30 Magnesium Hydroxide (Milk Of Mag) 30 ml DAILY PRN PO CONSTIPATION; Start at 18:30 Zolpidem Tartrate (Ambien) 5 mg QHS PRN PO SLEEP; Start 01/28/17 at 18:30 Amlodipine Besylate (Norvasc) 10 mg DAILY PO Last administered on 02/03/17 08: 47; Admin Dose 10 MG; Start 01/29/17 at 09:00 Clonidine (Catapres) 0.1 mg Q6H PRN PO BP >160; Start 01/29/17 at 10:00 Ondansetron HCl (Zofran Inj) 4 mg Q6H PRN IV NAUSEA AND/OR VOMITING Last administered on 02/01/17 08:11; Admin Dose 4 MG; Start 01/29/17 at 12:00 Cholecalciferol (Vitamin D) 1,000 unit DAILY PO Last administered on 02/04/17 09:31; Admin Dose 1,000 UNIT; Start 02/01/17 at 12:00 Hydralazine HCl (Apresoline) 25 mg TID PO Last administered on 02/04/17 12:29; Admin Dose 25 MG; Start 02/01/17 at 13:00 Carvedilol (Coreg) 12.5 mg BID PO Last administered on 02/03/17 21:39; Admin Dose 12.5 MG; Start 02/02/17 at 14:30 VIKRAM LUNA MD Feb 04, 2017 18:17
--- NOTE | 2017-02-04 22:41 | RADRPT ---
PROCEDURE: CR Right Elbow CLINICAL INDICATION: Right elbow pain, possible fracture/dislocation TECHNIQUE: AP, lateral, and an oblique radiographs were submitted. COMPARISON: None FINDINGS: Osseous Structures: The osseous elements appear intact with no fracture or osseous destruction evide nt. Joint Spaces: The joint spaces are anatomically maintained. There are positive anterior and posteri or fat pad signs indicating fluid accumulation within the joint capsule. Soft Tissues: There is osseous hypertrophy at the tendinous insertions the medial and lateral epicon dyles. IMPRESSION: 1. No discrete fracture is identified. 2. Positive anterior and posterior fat pad signs indicating fluid accumulation within the joint cap danna. If this is associated with a history of trauma, an occult intra-articular fracture cannot be excluded and a repeat elbow series in 2 weeks would be useful to further evaluate. If there was no trauma this could represent a simple effusion or even infection. Clinical correlation is indicated. 3. Mild osseous hypertrophy at the tendinous insertions and medial and lateral epicondyles. Physician Sarika Date Time Electronically viewed and signed by Physician Sarika on 02/04/2017 22:41 /
--- NOTE | 2017-02-05 00:20 | RADRPT ---
PROCEDURE: Ultrasound examination of the right upper extremity veins with Doppler. CLINICAL INDICATION: Pain and swelling. TECHNIQUE: Multiple sonographic images of the right upper extremity veins were performed with gra y scale and color Doppler. COMPARISON: None. FINDINGS: The right internal jugular, subclavian, axillary, brachial, basilic cephalic, radial and ulnar veins demonstrate normal color flow, waveforms and compression. There is no evidence of deep venous thro mbosis. IMPRESSION: No evidence of deep venous thrombosis within the right upper extremity veins. .Roel Mckeon MD, MD Date Time Electronically viewed and signed by .Roel Mckeon MD, on 02/05/2017 00:20 .T/
[2017-02-05 02:12] VITALS: BP 119/61; RESP 18
[2017-02-05 08:00] VITALS: BP 132/71; RESP 19
[2017-02-05] MEDS: AMLODIPINE 10 MG TAB PO SCH (08:42)
[2017-02-05] MEDS: CHOLECALCIFEROL 1,000 UNIT TAB PO SCH (08:43)
[2017-02-05] MEDS: CALCIUM ACETATE 667 MG CAP PO SCH ×2 (08:44→12:22)
--- NOTE | 2017-02-05 11:09 | PN ---
Date/Time of Note Date/Time of Note DATE: 02/05/17 TIME: 11:08 Assessment/Plan VTE Prophylaxis VTE Prophylaxis Intervention: SCD's Lines/Catheters IV Catheter Type (from Nrsg): Saline Lock Urinary Cath still in place: No Assessment/Plan Assessment/Plan Acute kidney injury on chronic kidney disease Hypernatremia, mild Hyperchloremia hypertensive emergency, SBP >180 with renal failure. resolved Anion gap metabolic acidosis Obesity Anemia, normocytic Plan: s/p Hd yesterday Dialysis arrangement done - [facility] renal - MWF at 5 pm X ray right elbow negative for acute findings Pain control possible d/c today follow up with HD unit for scheduled HD Subjective 24 Hr Interval Summary Free Text/Dictation Bp stable, S/p HD yesterday Exam/Review of Systems Vital Signs Vitals Vital Signs Date Time Temp Pulse Resp B/P Pulse Ox O2 Delivery O2 Flow Rate FiO2 02/05/17 08:00 98.2 68 19 132/71 96 Intake and Output 02/04/17 02/04/17 02/05/17 15:00 23:00 07:00 Intake Total 600 ml 780 ml 300 ml Output Total 2100 ml 1500 ml Balance -1500 ml -720 ml 300 ml Results Result Diagram: 02/01/17 0604 02/02/17 0425 Medications Medications Current Medications Acetaminophen/ Hydrocodone Bitart ([place] (5/325)) 2 tab Q6H PRN PO SEVERE PAIN LEVEL 7-10 Last administered on 02/03/17 08:46; Admin Dose 2 TAB; Start at 18:30 Magnesium Hydroxide (Milk Of Mag) 30 ml DAILY PRN PO CONSTIPATION; Start at 18:30 Zolpidem Tartrate (Ambien) 5 mg QHS PRN PO SLEEP; Start 01/28/17 at 18:30 Amlodipine Besylate (Norvasc) 10 mg DAILY PO Last administered on 02/05/17 08: 42; Admin Dose 10 MG; Start 01/29/17 at 09:00 Clonidine (Catapres) 0.1 mg Q6H PRN PO BP >160; Start 01/29/17 at 10:00 Ondansetron HCl (Zofran Inj) 4 mg Q6H PRN IV NAUSEA AND/OR VOMITING Last administered on 02/01/17 08:11; Admin Dose 4 MG; Start 01/29/17 at 12:00 Cholecalciferol (Vitamin D) 1,000 unit DAILY PO Last administered on 02/05/17 08:43; Admin Dose 1,000 UNIT; Start 02/01/17 at 12:00 Hydralazine HCl (Apresoline) 25 mg TID PO Last administered on 02/05/17 08:43; Admin Dose 25 MG; Start 02/01/17 at 13:00 Carvedilol (Coreg) 12.5 mg BID PO Last administered on 02/05/17 08:43; Admin Dose 12.5 MG; Start 02/02/17 at 14:30 YOHANNES GARCÍA MD Feb 05, 2017 11:09
--- NOTE | 2017-02-05 23:27 | DS ---
Date/Time of Note Date/Time of Note DATE: 02/05/17 TIME: 23:23 Discharge Summary Admission/Discharge Info Admit Date/Time Jan 28, 2017 at 15:23 Discharge Date/Time Feb 05, 2017 at 13:10 Discharge Diagnosis Acute kidney injury on chronic kidney disease Hypernatremia, mild Hyperchloremia hypertensive emergency, SBP >180 with renal failure. resolved Anion gap metabolic acidosis Obesity Anemia, normocytic Patient Condition: Good Consults Nephrology consult Procedures Dialysis catheter placement, Permacath placement done during this admission Hx of Present Illness Patient is a 71-year-old female with a past medical history significant for CKD and hypertension who presents to [facility] after following up with her primary care provider who incidentally found an elevated creatinine. Patient only takes losartan 100 mg daily and has not taken the medication today which is likely the reasoning behind her elevated blood pressure. Patient states that in [place] her physicians always mentioned that her poor renal function, however they stated it was not severe enough for medication or dialysis at this time. Patient has no other acute complaints. Denies nausea vomiting, headache, chest pain, abdominal pain. No bowel issues however does have a history of mild urinary retention. PMH: Hypertension and CKD PSH: Tubal ligation many years ago Social: Denies smoking, drinking, recreational drugs Meds: Losartan 100 mg daily Hospital Course pt presented with acute on chronic renal failure,progressively worsening, hypertensive emergency- she was started on hemodialysis during this s admission. Permacath placement was done and she was set up for outpatient hD placement in [facility]. she remained stable and had a x ray of right elbow negative, discharged home with outpatient HD placement Home Meds Active Scripts Cholecalciferol* (Vitamin D3*) 1,000 Unit Tablet, 1000 UNIT PO DAILY for 30 Days , #30 TAB 2 Refills Prov:SEEMA VELASQUEZ 02/01/17 Calcium Acetate* (Calcium Acetate*) 667 Mg Capsule, 667 MG PO WITH MEALS for 30 Days, #90 CAP 2 Refills Prov:SEEMA VELASQUEZ 02/01/17 Hydralazine Hcl* (Hydralazine Hcl*) 25 Mg Tab, 25 MG PO TID for 30 Days, #90 TAB 2 Refills Prov:SEEMA VELASQUEZ 02/01/17 Amlodipine Besylate* (Amlodipine Besylate*) 10 Mg Tablet, 10 MG PO DAILY for 30 Days, #30 TAB 2 Refills Prov:SEEMA VELASQUEZ 02/01/17 Terazosin Hcl* (Hytrin*) 1 Mg Cap, 1 MG PO HS for 30 Days, #30 CAP 2 Refills Prov:SEEMA VELASQUEZ 02/01/17 Discontinued Reported Medications Losartan Potassium* (Losartan Potassium*) 100 Mg Tablet, 100 MG PO DAILY, TAB 01/28/17 Follow-up Plan Follow up with her own PMD through HMO insurance in 1-2 week. follow up with HD center as outpatient for scheduled HD on MWF at 5 pm Primary Care Provider [facility] Time spent on discharge: > 30 minutes YOHANNES GARCÍA MD Feb 05, 2017 23:27
[2017-02-06] MEDS ORDERED: PROPOFOL 20 ML ONE (17:42)
[2017-02-06] MEDS ORDERED: PHENYLephrine (100 MCG/ML) 5ML SYG ONE (17:42)
== END 2017-02-05 13:10 | disposition home or self-care (01) | DRG 683 ==
LOC: E/R 13:00 → PP2 15:23
PROVIDERS: ADMIT Hospitalist; ATTEND Hospitalist
PROC: 05HM33Z Insertion of Infusion Device into Right Internal Jugular Vein, Percutaneous Approach (ICD-10-PCS; principal; 2017-01-31)
PROC: 5A1D60Z (ICD-10-PCS; 2017-01-31)
PROC: B543ZZA Ultrasonography of Right Jugular Veins, Guidance (ICD-10-PCS; 2017-01-31)
DX: N17.9 Acute kidney failure, unspecified (principal); I16.1 Hypertensive emergency; E87.0 Hyperosmolality and hypernatremia; E87.2 Acidosis; I12.0 Hypertensive chronic kidney disease with stage 5 chronic kidney disease or end stage renal disease; Z68.41 Body mass index [BMI] 40.0-44.9, adult; E66.9 Obesity, unspecified; E86.0 Dehydration; E83.39 Other disorders of phosphorus metabolism; E87.8 Other disorders of electrolyte and fluid balance, not elsewhere classified; E78.00 Pure hypercholesterolemia, unspecified; E83.42 Hypomagnesemia; N18.5 Chronic kidney disease, stage 5; N14.1 Nephropathy induced by other drugs, medicaments and biological substances; T46.5X5A Adverse effect of other antihypertensive drugs, initial encounter; D63.1 Anemia in chronic kidney disease; D72.829 Elevated white blood cell count, unspecified; D64.9 Anemia, unspecified; Z71.3 Dietary counseling and surveillance; Z99.2 Dependence on renal dialysis; Z83.3 Family history of diabetes mellitus; Z98.51 Tubal ligation status
CPT/HCPCS: 36415; 36558; 71010; 76775; 76942; 80048; 80053; 80061; 81001; 81003; 82570; 83036; 83540; 83735; 84100; 84155; 84300; 84436; 84479; 84560; 85025; 85610; 85730; 86704; 86709; 86803; 87340; 90935; 93005; 93971; J0360; J0690; J1200; J1644; J2150; J2370; J2405; J3010; J3475